=== PATIENT | male | born 1965 | race Caucasian/White ===

== ENCOUNTER 2019-04-30 09:29 | Day surgery (SDC) | payer BC, OTHER ==
[2019-04-30] MEDS ORDERED: Depo-Medrol 40 MG/ML IM ONE (09:30)
[2019-04-30] MEDS ORDERED: Marcaine 0.5% SDV 10 ML IJ ONE (09:30)
[2019-04-30] MEDS ORDERED: Ketamine HCl 50 MG/ML ONE (10:18)
[2019-04-30] MEDS ORDERED: DIPRIVAN 200 MG/20 ML IV ONE (10:18)
--- NOTE | 2019-04-30 10:50 | XRAY ---
11 seconds fluoroscopy time in surgery for right intra-articular hip injection.
--- NOTE | 2019-04-30 10:50 | XRAY ---
Indication: Right hip injection. Intraoperative fluoroscopy was provided for 11 seconds. Single digital spot image submitted for interpretation demonstrates needle tip projecting just lateral to the right femur neck. Small amount of contrast injected for needle tip placement. Correlate with intraoperative findings/report.
[2019-04-30] MEDS ORDERED: Lactated Ringers 1,000 ML IV ONE (14:51)
== END 2019-04-30 10:45 | disposition home or self-care (01) ==
LOC: SDC-PAIN 09:29
PROVIDERS: ATTEND Psychiatry & Neurology Pain Medicine
DX: M16.11 Unilateral primary osteoarthritis, right hip (principal); K21.9 Gastro-esophageal reflux disease without esophagitis; G47.30 Sleep apnea, unspecified; F41.8 Other specified anxiety disorders; Z86.718 Personal history of other venous thrombosis and embolism
CPT/HCPCS: 20610; 73501; 77002; J1030; J2704; Q9966

== ENCOUNTER 2021-03-13 08:33 | Emergency (ER) | payer OTHER ==
--- NOTE | 2021-03-13 08:55 | ERPHSYRPT ---
- History of Present Illness Time Seen by Provider: 03/13/21 08:54 Source: patient Exam Limitations: no limitations Patient Subjective Stated Complaint: to er c/o severe pain to left buttock hip and leg. pt states he has hx of siatic pain on right side and feels similar. pt tried biofreeze patch and norco at home. 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 pt sees dr duggan for [id number] Triage Nursing Assessment: pt arrives p/w/d resp labored dt pain. pt is guarding left side unable to stay in one position long Physician History: This is an overweight 55-year-old white male patient of Dr. Duggan who has a history of right-sided sciatica. Dr. Duggan is his pain specialist and occasionally injects medication in his back to help with the right-sided sciatica. Patient states that he has no recent fall or trauma. However, 30 da ys ago he fell onto his right wrist and had some pain in his right wrist and right ribs. It was not until [place] pratik where he began having some pain in his left hip and buttock area. He has no urinary incontinence. He has no bowel incontinence. He does not have any numbness to his lower extremity. He tried his usual [place] pain medicine and it did not help. Timing/Duration: day(s) (2) Method of Injury: other (No recent injury to his back or left hip) Quality: radiating, sharp, aching Back Pain Location: lumbar spine Back Pain Radiation: buttocks, upper legs Severity of Pain-Max: moderate Severity of Pain-Current: moderate Modifying Factors: Improves With: movement Associated Symptoms: lower back pain, No urinary incontinence, No loss of bowel control, No problems urinating, No numbness in legs/feet, No sensory/motor loss, No tingling in legs/feet Previous symptoms: other (Has had similar symptoms but on the right side not on the left side as he has today) Allergies/Adverse Reactions: No Known Drug Allergies Allergy (Unverified 03/13/21 08:54) Home Medications: ALPRAZolam 1 MG [Xanax 1 mg] 1 mg PO BID PRN 03/13/21 [History] Hydrocodone/Acetaminophen [Hydrocodone-Acetamin 10-325 mg] 1 tablet PO TID 03/13/21 [History] Travel Risk - International Travel Have you traveled outside of the country in past 3 weeks: No - Coronavirus Screening Are you exhibiting any of the following symptoms?: No Close contact with a COVID-19 positive Pt in past 14-21 Days: No - Vaccine Status Have you recieved a Covid-19 vaccination: Yes 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[employer] - Review of Systems Constitutional: No Symptoms Eyes: No Symptoms Ears, Nose, & Throat: No Symptoms Respiratory: No Symptoms Cardiac: No Symptoms Abdominal/Gastrointestinal: No Symptoms Genitourinary Symptoms: No Symptoms Musculoskeletal: Back Pain, No Fall, No Injury Skin: No Symptoms Neurological: No Symptoms Psychological: No Symptoms Endocrine: No Symptoms Hematologic/Lymphatic: No Symptoms Immunological/Allergic: No Symptoms All Other Systems: Reviewed and Negative - Past Medical History Pertinent Past Medical History: Yes Other Medical History: PE, - Past Surgical History Past Surgical History: Yes Other Surgical History: left knee acl - Social History Smoking Status: Never smoker - Nursing Vital Signs Nursing Vital Signs: Pain Scale Pain Intensity 10 - Physical Exam General Appearance: mild distress, alert, anxiety, obese Eye Exam: PERRL/EOMI, eyes nml inspection Ears, Nose, Throat Exam: normal ENT inspection, moist mucous membranes Neck Exam: normal inspection, non-tender, supple, full range of motion Respiratory Exam: airway intact, No chest tenderness, No respiratory distress Gastrointestinal Exam: No tenderness Rectal Exam: not done Back Exam: normal inspection, decreased range of motion, muscle spasm, No CVA tenderness, No vertebral tenderness Extremity Exam: normal inspection, normal range of motion, pelvis stable Neurologic Exam: alert, oriented x 3, cooperative, 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, normal mood/affect, sensation nml, No motor deficits Skin Exam: normal color, warm, dry Lymphatic Exam: No adenopathy SpO2 Interpretation: normal O2 Delivery: Room Air - Course Nursing assessment & vital signs reviewed: Yes Ordered Tests: Medication Summary Discontinued Medications Generic Name Dose Route Start Last Admin Trade Name Alfredq PRN Reason Stop Dose Admin Methylprednisolone Sodium 0 mg 03/13/21 09:09 Succinate 125 mg/ Sterile IM 03/13/21 09:10 Water 2 ml STAT ONE Hydromorphone HCl 1 mg 03/13/21 09:09 Hydromorphone 1 Mg/1ml Inj 1 Mg/Ml Syringe IM 03/13/21 09:10 STAT ONE Ondansetron HCl 4 mg 03/13/21 09:11 Zofran 4 Mg/Udtablet Orally Disintegrating PO 03/13/21 09:12 STAT ONE Orphenadrine Citrate 60 mg 03/13/21 09:10 Orphenadrine Citrate 60 Mg/2 Ml Amp IM 03/13/21 09:11 STAT ONE - Progress Progress: improved, pain not gone completely Counseled pt/family regarding: diagnosis, need for follow-up - Departure Departure Disposition: Home Clinical Impression: Left sided sciatica Condition: Stable Critical Care Time: No Referrals: JORGE LUIS STEWART [NON-STAFF Y W/O PRIVILEGES] - Follow up/PCP as directed Additional Instructions: Take your [place] as prescribed. Call Dr. Duggan's office tomorrow morning, 03/14/2021 for further management recommendations. Fill the additional medications that were prescribed to you and take as prescribed. Prescriptions: Prednisone 10 mg [Deltasone 10 mg] 10 mg PO TID #12 tablet Orphenadrine Citrate 100 mg [Norflex 100 MG Tablet] 100 mg PO BID #14 tab
[2021-03-13] MEDS ORDERED: solu-MEDROL 125 MG, Sterile H2O 10 ml 2 ML IM ONE ×2 (09:09)
[2021-03-13] MEDS ORDERED: Hydromorphone 1 mg/ml Injection IM ONE (09:09)
[2021-03-13] MEDS ORDERED: Norflex 60 MG/2 ML IM ONE (09:10)
[2021-03-13] MEDS ORDERED: ZOFRAN ODT 4 MG PO ONE (09:11)
[2021-03-13] MEDS ORDERED: solu-MEDROL ONE (09:14)
[2021-03-13] MEDS ORDERED: Hydromorphone 1 mg/ml Injection ONE (09:14)
[2021-03-13] MEDS ORDERED: Norflex 60 MG/2 ML ONE (09:14)
[2021-03-13] MEDS ORDERED: ZOFRAN ODT 4 MG ONE (09:14)
[2021-03-13 09:48] VITALS: BP 169/82; PULSE 102; O2SAT 97
== END 2021-03-13 09:46 | disposition home or self-care (01) ==
LOC: ED 08:33
DX: M54.32 Sciatica, left side (principal); Z79.891 Long term (current) use of opiate analgesic
CPT/HCPCS: 96372; 99284; J1170; J2360; J2930; Q0162

== ENCOUNTER 2021-03-28 23:00 | Emergency (ER) | payer OTHER ==
[2021-03-28 23:16] VITALS: BP 149/129; PULSE 99; O2SAT 97
[2021-03-28] MEDS ORDERED: TORAdol 30 mg Injection IM ONE (23:29)
[2021-03-28] MEDS ORDERED: TORAdol 30 mg Injection ONE (23:34)
--- NOTE | 2021-03-28 23:37 | ERPHSYRPT ---
- History of Present Illness Time Seen by Provider: 03/28/21 23:10 Source: patient Exam Limitations: no limitations Patient Subjective Stated Complaint: ems states they were called to the [employer] for lift assist and pt c/o leg pain Triage Nursing Assessment: pt came into the er via ambulance; pt is axo x3 ETOH; c/o fall; pt states 10/10 pain to left leg; abrasion present to left and rt knee; strong pedal pulse; good cap refill to LLE; good ROM to LLE; hypertension Physician History: Patient is a 55-year-old male presents to our ED via EMS nonboarded noncollared for evaluation of low back and left leg pain. Patient states he was ambulating in a parking lot at the [facility] [employer]. Patient slipped and fell onto his bottom. Patient now has low back pain rating to his left leg. Patient states he does not have a history of sciatica. No other injuries reported. No neck pain. Cervical spine cleared clinically. No BHT or LOC. The fall was mechanical. The fall was not associated with any neuro cardiovascular symptomology. No associated chest pain or shortness of breath. Symptoms are mild to moderate in intensity. Pain worse with straight leg raise. Patient states he is otherwise healthy. He voices no other complaints or concerns at this time. Timing/Duration: today Severity: moderate Modifying Factors: Improves With: movement, other (Palpation to lumbar spine reproduces symptoms.) Associated Symptoms: denies symptoms, No nausea, No vomiting, No abdominal pain, No diaphoresis, No cough, No chest pain, No headaches, No loss of appetite, No malaise, No syncope, No seizure, No weakness Allergies/Adverse Reactions: No Known Drug Allergies Allergy (Verified 03/28/21 23:03) Home Medications: ALPRAZolam 1 MG [Xanax 1 mg] 1 mg PO BID PRN 03/13/21 [History] Hydrocodone/Acetaminophen [Hydrocodone-Acetamin 10-325 mg] 1 tablet PO TID [History] Hx Tetanus, Diphtheria Vaccination/Date Given: No (unknown) Hx Influenza Vaccination/Date Given: No Hx Pneumococcal Vaccination/Date Given: No Travel Risk - International Travel Have you traveled outside of the country in past 3 weeks: No - Coronavirus Screening Are you exhibiting any of the following symptoms?: No Close contact with a COVID-19 positive Pt in past 14-21 Days: No - Vaccine Status Have you recieved a Covid-19 vaccination: Yes 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 - Review of Systems Constitutional: No Symptoms, No Fever, No Chills Eyes: No Symptoms Ears, Nose, & Throat: No Symptoms Respiratory: No Symptoms, No Cough, No Dyspnea Cardiac: No Symptoms, No Chest Pain, No Edema, No Syncope Abdominal/Gastrointestinal: No Symptoms, No Abdominal Pain, No Nausea, No Vomiting, No Diarrhea Genitourinary Symptoms: No Symptoms, No Dysuria Musculoskeletal: No Symptoms, No Back Pain, No Neck Pain Skin: No Symptoms, No Rash Neurological: No Symptoms, No Dizziness, No Focal Weakness, No Sensory Changes Psychological: No Symptoms Endocrine: No Symptoms Hematologic/Lymphatic: No Symptoms Immunological/Allergic: No Symptoms All Other Systems: Reviewed and Negative - Past Medical History Pertinent Past Medical History: Yes Neurological History: No Pertinent History ENT History: No Pertinent History Cardiac History: No Pertinent History Respiratory History: Pulmonary Embolism Endocrine Medical History: No Pertinent History Musculoskeletal History: Degenerative Disk Disease GI Medical History: No Pertinent History History: No Pertinent History Psycho-Social History: Anxiety Male Reproductive Disorders: No Pertinent History Other Medical History: PE, - Past Surgical History Past Surgical History: Yes Neuro Surgical History: No Pertinent History Cardiac: No Pertinent History Respiratory: No Pertinent History Gastrointestinal: No Pertinent History Genitourinary: No Pertinent History Musculoskeletal: Orthopedic Surgery Male Surgical History: No Pertinent History Other Surgical History: left knee acl - Social History Smoking Status: Never smoker Exposure to second hand smoke: No Drug Use: none Patient Lives Alone: Yes - Nursing Vital Signs Nursing Vital Signs: Initial Vital Signs Temperature 97 F 03/28/21 23:03 Pulse Rate 99 H 03/28/21 23:03 Respiratory Rate 18 03/28/21 23:03 Blood Pressure 149/129 03/28/21 23:03 O2 Sat by Pulse Oximetry 97 03/28/21 23:03 Pain Scale Pain Intensity 10 - Physical Exam General Appearance: no apparent distress, alert Eye Exam: PERRL/EOMI, eyes nml inspection Ears, Nose, Throat Exam: normal ENT inspection, TMs normal, pharynx normal, moist mucous membranes Neck Exam: normal inspection, non-tender, supple, full range of motion Respiratory Exam: normal breath sounds, lungs clear, airway intact, No respiratory distress Cardiovascular Exam: regular rate/rhythm, normal heart sounds, normal peripheral pulses Gastrointestinal/Abdomen Exam: soft, normal bowel sounds, No tenderness, No mass Back Exam: normal inspection, normal range of motion, No CVA tenderness, No vertebral tenderness Extremity Exam: normal inspection, normal range of motion, pelvis stable, other (Tenderness to palpation left distal femur. Patient able to flex his left knee. Extensor mechanism intact. Involved extremity is neurovascular tact distally. Compartments are soft. Cap refill less than 2 seconds. PT DP pulse palpable.) Neurologic Exam: alert, oriented x 3, cooperative, normal mood/affect, nml cerebellar function, nml station & gait, sensation nml, No motor deficits Skin Exam: normal color, warm, dry, No rash Lymphatic Exam: No adenopathy SpO2 Interpretation: normal SpO2: 97 O2 Delivery: Room Air - Course Nursing assessment & vital signs reviewed: Yes - Radiology Exams Femur X-ray Interpretation: Interpreted by me (No fracture or dislocation. No soft tissue abnormalities.) - CT Exams Lumbar Spine CT Interpretation: Tele-radiologist Report (No acute findings. Multilevel degenerative changes. Vertebral heights are normal. No acute fracture. Normal alignment. Degenerative changes. Spinal stenosis is most severe at L4-L5. Moderate neural foraminal narrowing.) Ordered Tests: Active Orders 24 hr Category Date Time Status FEMUR Stat Exams 03/28/21 23:28 Taken LUMBAR SPINE W/O [CT] Stat Exams 03/28/21 23:27 Taken Medication Summary Discontinued Medications Generic Name Dose Route Start Last Admin Trade Name Freq PRN Reason Stop Dose Admin Ketorolac Tromethamine 30 mg 03/28/21 23:29 03/28/21 23:35 Ketorolac Tromethamine 30 Mg/Ml Inj IM 03/28/21 23:30 30 mg STAT ONE Administration Ketorolac Tromethamine Confirm 03/28/21 23:34 Ketorolac Tromethamine 30 Mg/Ml Inj Administered 03/28/21 23:35 Dose 30 mg .ROUTE .STK-MED ONE - Progress Progress: improved Progress Note: Patient left before we can discussed the findings. Patient eloped/absconded. We did not discuss the imaging study findings. Patient states that his significant other was there to pick him up and he could not wait. 03/29/21 00:46 - Departure Departure Disposition: AMA (Patient eloped/absconded. Patient left before we can discuss findings and or discussed AMA) Clinical Impression: Low back pain, Fall, Sciatica, Arthritis of spine, Spinal canal stenosis lumbar spine Condition: Stable Critical Care Time: No Referrals: JANICE CHANDLER, [ACTIVE STAFF] - Follow up/PCP as directed Additional Instructions: Discharge/Care Plan MOHSEN URIBE was seen on 03/29/21 in the Emergency Room. The patient was counseled regarding Diagnosis,Lab results, Imaging studies, need for follow up and when to return to the Emergency Room. Prescriptions given: Discharge Note I have spoken with the patient and/or caregivers. I have explained the patient's condition, diagnosis and treatment plan based on the information available to me at this time. I have answered the patient's and/or caregiver's questions and addressed any concerns. The patient and/or caregivers have as good understanding of the patient's diagnosis, condition and treatment plan as can be expected at this point. The vital signs have been stable. The patient's condition is stable and appropriate for discharge from the emergency department. The patient will pursue further outpatient evaluation with the primary care physician or other designated or consulting physician as outlined in the discharge instructions. The patient and/or caregivers are agreeable to this plan of care and follow-up instructions have been explained in detail. The patient and/or caregivers have received these instruction. The patient/and or caregivers are aware that any significant change in condition or worsening of symptoms should prompt an immediate return to this or the closest emergency department or call 911.
--- NOTE | 2021-03-29 09:28 | XRAY ---
Indication: Pain following fall. Comparison: None 2 view left femur demonstrates minimal vascular calcifications. No other bony, articular, or soft tissue abnormalities.
--- NOTE | 2021-03-29 09:30 | XRAY ---
Indication: Pain following fall. Multiple contiguous axial images obtained through the lumbar spine. Sagittal and coronal reformatted images obtained. Comparison: None Axial images negative for acute fracture, suspicious bony lesions, or spinal canal stenosis. There is mild/moderate L1-S1 broad-based degenerative disc bulge with vacuum disc phenomena. L4-S1 level demonstrates mild degenerative changes of the opposing endplates and mild bilateral degenerative facet arthropathy. Sagittal and coronal reformatted images demonstrates normal alignment. Mild L4-S1 disc space narrowing. No acute compression fracture or subluxation. Visualized noncontrasted soft tissues demonstrates minimal aortic calcifications. Impression: Multilevel degenerative changes. Negative acute fracture/subluxation. Comment: Preliminary interpretation made by [facility]. No critical discrepancy.
== END 2021-03-29 00:40 | disposition left against medical advice (07) ==
LOC: ED 23:00
DX: M54.42 Lumbago with sciatica, left side (principal); W01.0XXA Fall on same level from slipping, tripping and stumbling without subsequent striking against object, initial encounter; Y92.481 Parking lot as the place of occurrence of the external cause; M48.061 Spinal stenosis, lumbar region without neurogenic claudication; M47.816 Spondylosis without myelopathy or radiculopathy, lumbar region; Z86.711 Personal history of pulmonary embolism; Z79.891 Long term (current) use of opiate analgesic
CPT/HCPCS: 72131; 73552; 96372; 99284; J1885

== ENCOUNTER 2021-04-12 08:07 | Emergency (ER) | payer OTHER ==
[2021-04-12 08:16] VITALS: BP 164/122; PULSE 101; O2SAT 97
[2021-04-12] MEDS ORDERED: Hydromorphone 1 mg/ml Injection IM ONE (08:23)
--- NOTE | 2021-04-12 08:23 | ERPHSYRPT ---
- History of Present Illness Time Seen by Provider: 04/12/21 08:17 Source: patient Exam Limitations: no limitations Patient Subjective Stated Complaint: Back pain Triage Nursing Assessment: Patient brought back to ED via w/c and transferred to bed with assist of 1. Patient A+O x3. Patient's skin pink, warm and dry. Patient states he woke up with back pain. Patient complains of constant aching pain with intermittent sharp pain that radiates down left leg into ankle 12/26. Patient denies recent injury and states he has chronic back issues and is seeing a instructional systems specialist on Sunday. Physician History: This is a 55-year-old white male with chronic back pain and sciatica. He has been seen at least 3 times in the last month in this emergency department for the same issue. Patient sees a pain specialist Dr. Duggan. He is prescribed Xanax and hydrocodone. Patient was seen here at this emergency department on 03/28/2021 and he had underwent a CT scan of the lumbar spine which showed degenerative changes. There were no acute fractures or subluxations. There was no spinal cord impingement. Patient woke up this morning with excruciating back pain. He did not fall or sustain any acute traumatic injury. Patient supposedly sees a back specialist on 04/15/2021 this week. Patient has no loss of bowel or bladder control Timing/Duration: today Method of Injury: other (No injury) Quality: sharp Back Pain Location: lumbar spine, paraspinous muscles Back Pain Radiation: buttocks, upper legs Severity of Pain-Max: moderate Severity of Pain-Current: moderate Modifying Factors: Improves With: movement Associated Symptoms: lower back pain, No urinary incontinence, No problems urinating, No numbness in legs/feet Previous symptoms: same symptoms as today, recently seen, recently treated Allergies/Adverse Reactions: No Known Drug Allergies Allergy (Verified 04/12/21 08:10) Home Medications: ALPRAZolam 1 MG [Xanax 1 mg] 1 mg PO BID PRN 03/13/21 [History] Hydrocodone/Acetaminophen [Hydrocodone-Acetamin 10-325 mg] 1 tablet PO TID 03/13/21 [History] Hx Tetanus, Diphtheria Vaccination/Date Given: No (unknown) Hx Influenza Vaccination/Date Given: No Hx Pneumococcal Vaccination/Date Given: No Immunizations Up to Date: Yes Travel Risk - International Travel Have you traveled outside of the country in past 3 weeks: No - Coronavirus Screening Are you exhibiting any of the following symptoms?: No Close contact with a COVID-19 positive Pt in past 14-21 Days: No - Vaccine Status Have you recieved a Covid-19 vaccination: Yes 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: [employer] - Review of Systems Constitutional: No Symptoms Eyes: No Symptoms Ears, Nose, & Throat: No Symptoms Respiratory: No Symptoms Cardiac: No Symptoms Abdominal/Gastrointestinal: No Symptoms Genitourinary Symptoms: No Symptoms Musculoskeletal: Back Pain, No Fall, No Injury Skin: No Symptoms Neurological: No Symptoms Psychological: No Symptoms Endocrine: No Symptoms Hematologic/Lymphatic: No Symptoms Immunological/Allergic: No Symptoms All Other Systems: Reviewed and Negative - Past Medical History Pertinent Past Medical History: Yes Neurological History: No Pertinent History ENT History: No Pertinent History Cardiac History: No Pertinent History Respiratory History: Pulmonary Embolism Endocrine Medical History: No Pertinent History Musculoskeletal History: Degenerative Disk Disease GI Medical History: No Pertinent History History: No Pertinent History Psycho-Social History: Anxiety Male Reproductive Disorders: No Pertinent History Other Medical History: PE, - Past Surgical History Past Surgical History: Yes Neuro Surgical History: No Pertinent History Cardiac: No Pertinent History Respiratory: No Pertinent History Gastrointestinal: No Pertinent History Genitourinary: No Pertinent History Musculoskeletal: Orthopedic Surgery Male Surgical History: No Pertinent History Other Surgical History: left knee acl - Social History Smoking Status: Never smoker Exposure to second hand smoke: No Drug Use: none Patient Lives Alone: Yes - Nursing Vital Signs Nursing Vital Signs: Initial Vital Signs Pulse Rate 101 H 04/12/21 08:11 Respiratory Rate 18 04/12/21 08:11 Blood Pressure 164/122 04/12/21 08:11 O2 Sat by Pulse Oximetry 97 04/12/21 08:11 Pain Scale Pain Intensity 10 - Physical Exam General Appearance: mild distress, alert, anxiety Eye Exam: PERRL/EOMI, eyes nml inspection Ears, Nose, Throat Exam: normal ENT inspection, moist mucous membranes Neck Exam: normal inspection, non-tender, supple, full range of motion Respiratory Exam: No chest tenderness Gastrointestinal Exam: No tenderness Rectal Exam: not done Back Exam: normal inspection, decreased range of motion, muscle spasm, No vertebral tenderness Extremity Exam: normal inspection, normal range of motion, pelvis stable Neurologic Exam: alert, oriented x 3, cooperative, automatic developer II-XII nml as tested, normal mood/affect, nml cerebellar function, sensation nml Skin Exam: normal color, warm, dry Lymphatic Exam: No adenopathy SpO2 Interpretation: normal SpO2: 97 O2 Delivery: Room Air - Course Nursing assessment & vital signs reviewed: Yes - Progress Progress: improved, pain not gone completely Counseled pt/family regarding: diagnosis, need for follow-up - Departure Departure Disposition: Home Clinical Impression: Acute exacerbation of chronic low back pain, Sciatica Condition: Stable Critical Care Time: No Referrals: Crescencio Bradshaw [Primary Care Provider] - Follow up/PCP as directed Additional Instructions: Call Dr. Duggan's office today for further outpatient management of your back pain. Keep your appointment with your back specialist on 04/15/2021. Take your medications as prescribed Prescriptions: Prednisone 10 mg [Deltasone 10 mg] 10 mg PO TID #12 tablet Orphenadrine Citrate 100 mg [Norflex 100 MG Tablet] 100 mg PO BID #10 tab
[2021-04-12] MEDS ORDERED: ZOFRAN ODT 4 MG PO ONE (08:24)
[2021-04-12] MEDS ORDERED: Norflex 60 MG/2 ML IM ONE (08:24)
[2021-04-12] MEDS ORDERED: solu-MEDROL 125 MG, Sterile H2O 10 ml 2 ML IM ONE ×2 (08:24)
[2021-04-12] MEDS ORDERED: Sterile H2O 10 ml IJ ONE (08:26)
[2021-04-12] MEDS ORDERED: Hydromorphone 1 mg/ml Injection ONE (08:26)
[2021-04-12] MEDS ORDERED: Norflex 60 MG/2 ML ONE (08:26)
[2021-04-12] MEDS ORDERED: solu-MEDROL ONE (08:26)
[2021-04-12] MEDS ORDERED: ZOFRAN ODT 4 MG ONE (08:26)
== END 2021-04-12 08:57 | disposition home or self-care (01) ==
LOC: ED 08:07
DX: M54.42 Lumbago with sciatica, left side (principal); G89.29 Other chronic pain; Z86.711 Personal history of pulmonary embolism; Z79.891 Long term (current) use of opiate analgesic; Z79.52 Long term (current) use of systemic steroids; Z79.899 Other long term (current) drug therapy
CPT/HCPCS: 96372; 99284; J1170; J2360; J2930; Q0162

== ENCOUNTER 2021-08-16 18:43 | Emergency (ER) | payer OTHER ==
[2021-08-16] MEDS ORDERED: Lasix 40 MG/4 ML IV ONE (18:44)
--- NOTE | 2021-08-16 18:48 | ERPHSYRPT ---
- History of Present Illness Time Seen by Provider: 08/16/21 18:48 Source: patient, family Exam Limitations: no limitations Physician History: This is a 55-year-old white male patient who was told to come to the emergency department because he had an outpatient ultrasound of the right lower extremity showing DVT. Patient has a distant history of pulmonary embolus and was taken off of anticoagulation therapy several years ago. He was having pain in his right calf and the venous ultrasound this morning showed the DVT present. He denies chest pain. He denies shortness of breath. Quality: aching, cramping Severity of Pain-Max: mild Severity of Pain-Current: mild Lower Extremities Pain: leg: right (Calf/lower leg) Modifying Factors: Improves With: nothing Associated Symptoms: none Allergies/Adverse Reactions: No Known Drug Allergies Allergy (Verified 04/12/21 08:10) Home Medications: ALPRAZolam 1 MG [Xanax 1 mg] 1 mg PO BID PRN 03/13/21 [History] Hydrocodone/Acetaminophen [Hydrocodone-Acetamin 10-325 mg] 1 tablet PO TID 03/13/21 [History] Rivaroxaban 10 mg Tablet [Xarelto 10 mg Tablet] 10 mg PO DAILY 08/16/21 [History] Hx Tetanus, Diphtheria Vaccination/Date Given: No (unknown) Hx Influenza Vaccination/Date Given: No Hx Pneumococcal Vaccination/Date Given: No Travel Risk - International Travel Have you traveled outside of the country in past 3 weeks: No - Coronavirus Screening Are you exhibiting any of the following symptoms?: No Close contact with a COVID-19 positive Pt in past 14-21 Days: No - Vaccine Status Have you recieved a Covid-19 vaccination: Yes [employer]: [employer] - Review of Systems Constitutional: No Symptoms Eyes: No Symptoms Ears, Nose, & Throat: No Symptoms Respiratory: No Symptoms Cardiac: No Symptoms Abdominal/Gastrointestinal: No Symptoms Genitourinary Symptoms: No Symptoms Musculoskeletal: Other (Right lower leg cramping) Skin: No Symptoms Neurological: No Symptoms Psychological: No Symptoms Endocrine: No Symptoms Hematologic/Lymphatic: No Symptoms Immunological/Allergic: No Symptoms All Other Systems: Reviewed and Negative - Past Medical History Pertinent Past Medical History: Yes Neurological History: No Pertinent History ENT History: No Pertinent History Cardiac History: No Pertinent History Respiratory History: Pulmonary Embolism Endocrine Medical History: No Pertinent History Musculoskeletal History: Degenerative Disk Disease GI Medical History: No Pertinent History History: No Pertinent History Psycho-Social History: Anxiety Male Reproductive Disorders: No Pertinent History Other Medical History: PE, - Past Surgical History Past Surgical History: Yes Neuro Surgical History: No Pertinent History Cardiac: No Pertinent History Respiratory: No Pertinent History Gastrointestinal: No Pertinent History Genitourinary: No Pertinent History Musculoskeletal: Orthopedic Surgery Male Surgical History: No Pertinent History Other Surgical History: left knee acl - Social History Smoking Status: Never smoker Exposure to second hand smoke: No Drug Use: none Patient Lives Alone: Yes - Nursing Vital Signs Nursing Vital Signs: Initial Vital Signs Temperature 97.2 F 08/16/21 19:12 Pulse Rate 102 H 08/16/21 19:12 Respiratory Rate 22 08/16/21 19:12 Blood Pressure 143/97 08/16/21 19:12 O2 Sat by Pulse Oximetry 97 08/16/21 19:12 Pain Scale Pain Intensity 5 - Physical Exam General Appearance: no apparent distress, alert, anxiety Eyes, Ears, Nose, Throat Exam: normal ENT inspection, moist mucous membranes Neck Exam: normal inspection, non-tender, supple, full range of motion Cardiovascular/Respiratory Exam: chest non-tender, no respiratory distress Gastrointestinal/Abdominal Exam: non-tender Back Exam: normal inspection, normal range of motion, No CVA tenderness, No vertebral tenderness Hips Exam: bilateral: non-tender, normal inspection, normal range of motion, no evidence of injury Legs Exam: right leg: soft tissue tenderness (Calf pain), left leg: non-tender, bilateral leg: normal inspection, normal range of motion, no evidence of injury Knees Exam: bilateral knee: non-tender, normal inspection, normal range of motion, no evidence of injury Ankle Exam: bilateral ankle: non-tender, normal inspection, normal range of motion, no evidence of injury Foot Exam: bilateral foot: non-tender, normal inspection, normal range of motion, no evidence of injury Neuro/Tendon Exam: normal sensation, normal motor functions, normal tendon functions, responds to pain, no evidence tendon injury Mental Status Exam: alert, oriented x 3, cooperative Skin Exam: normal color, warm, dry SpO2 Interpretation: normal O2 Delivery: Room Air - Course Nursing assessment & vital signs reviewed: Yes EKG Interpreted by Me: RATE ([id number]), Sinus Rhythm, NORMAL AXIS, NORMAL INTERVALS, NORMAL QRS, NORMAL ST-T, Other (No acute ischemic changes.) Ordered Tests: Active Orders 24 hr Category Date Time Status CBC W DIFF Stat Lab 08/16/21 20:04 Ordered PROTIME WITH INR Stat Lab 08/16/21 20:04 Ordered Medication Summary Discontinued Medications Generic Name Dose Route Start Last Admin Trade Name Freq PRN Reason Stop Dose Admin Apixaban 10 mg 08/16/21 19:36 Apixaban 2.5 Mg Tablet PO 08/16/21 19:37 STAT ONE Enoxaparin Sodium 105 mg 08/16/21 19:35 Enoxaparin Sodium 120 Mg/0.8 Ml Syringe SQ 08/16/21 19:36 STAT STA Enoxaparin Sodium Confirm 08/16/21 19:40 Enoxaparin Sodium 80 Mg/0.8 Ml Syringe Administered 08/16/21 19:41 Dose 80 mg SQ .STK-MED ONE Furosemide 20 mg 08/16/21 20:04 Furosemide 20 Mg/Vial IV 08/16/21 20:05 STAT ONE - Progress Progress: unchanged Counseled pt/family regarding: lab results, diagnosis, need for follow-up - Departure Departure Disposition: Home Clinical Impression: Right leg DVT Condition: Stable Critical Care Time: No Referrals: Crescencio Bradshaw [Primary Care Provider] - Follow up/PCP as directed Additional Instructions: Take your medication as prescribed. Follow-up with your primary prescribing physician tomorrow morning to make arrangements for follow-up appointment and for further evaluation and to provide you with long-term Eliquis prescription. Prescriptions: Apixaban [Eliquis] 10 mg PO BID 14 Days #28 tablet
[2021-08-16 19:18] VITALS: O2SAT 97
[2021-08-16] MEDS ORDERED: ENOXAPARIN SODIUM SQ STA (19:35)
[2021-08-16] MEDS ORDERED: ELIQUIS 2.5 MG TABLET PO ONE (19:36)
[2021-08-16] MEDS ORDERED: ENOXAPARIN SODIUM SQ ONE ×2 (19:40→20:15)
[2021-08-16] MEDS ORDERED: Lasix 20 MG/2 ML IV ONE (20:04)
[2021-08-16 20:08] LABS: Hematocrit 43.7 % (42-50); Hemoglobin 15.3 g/dL (12.5-18.0); Mean Cell Volume 108.2 fL (78-100); Mean Corpuscular Hemoglobin 37.9 pg (26-32); Mean Platelet Volume 9.8 fL (7.5-11.0); Platelet Count 214 x10^3/uL (150-450); Red Blood Count 4.04 x10^6/uL (4.1-5.6); Red Cell Distribution Width 14.7 % (11.5-14.0); White Blood Count 6.4 x10^3/uL (4.0-10.5)
[2021-08-16] MEDS ORDERED: Lasix 40 MG/4 ML ONE (20:09)
[2021-08-16 20:25] LABS: INR 1.06 (0.8-3.0); PROTIME 11.2 SECONDS (9.4-12.5)
[2021-08-16 20:44] VITALS: BP 143/105; PULSE 100
[2021-08-16 22:38] LABS: Eosinophil 2 % (0.00-3.0); Lymphocytes 34 % (24-44); Macrocytosis 2+; Monocyte 8 % (0.0-12.0); Platelet Estimate NORMAL (NORMAL); Total Cells Counted 100
== END 2021-08-16 20:43 | disposition home or self-care (01) ==
LOC: ED 18:43
DX: I82.401 Acute embolism and thrombosis of unspecified deep veins of right lower extremity (principal); M79.604 Pain in right leg; Z86.711 Personal history of pulmonary embolism; Z79.01 Long term (current) use of anticoagulants; Z79.899 Other long term (current) drug therapy; Z79.891 Long term (current) use of opiate analgesic
CPT/HCPCS: 36415; 85025; 85610; 96372; 96374; 99284; J1650; J1940; A9270-GY

== ENCOUNTER 2021-12-12 12:33 | Observation (INO) | payer OTHER ==
--- NOTE | 2021-12-12 12:36 | ERPHSYRPT ---
- History of Present Illness Time Seen by Provider: 12/12/21 12:35 Source: patient Exam Limitations: no limitations Physician History: This is an obese 56-year-old white male patient who is on Xarelto secondary to history of pulmonary embolism and DVT and presents with esophageal food bolus. He ate chicken yesterday and cannot swallow his saliva. He has no chest pain and no difficulty breathing. He has no abdominal pain. He had a history of this in the past with steak. Patient had to undergo an upper endoscopy to remove the food bolus. Patient states that he tried everything including soda to get the food bolus to pass but has been unable to do so. Timing/Duration: yesterday Severity: mild (To moderate) Modifying Factors: Improves With: other (Swallowing attempts worsen) Associated Symptoms: difficulty swallowing Allergies/Adverse Reactions: No Known Drug Allergies Allergy (Verified 12/12/21 12:47) Home Medications: ALPRAZolam 1 MG [Xanax 1 mg] 1 mg PO BID PRN 03/13/21 [History] Hydrocodone/Acetaminophen [Hydrocodone-Acetamin 10-325 mg] 1 tablet PO TID 03/13/21 [History] Rivaroxaban 10 mg Tablet [Xarelto 10 mg Tablet] 10 mg PO DAILY 08/16/21 [History] Hx Tetanus, Diphtheria Vaccination/Date Given: No (unknown) Hx Influenza Vaccination/Date Given: No Hx Pneumococcal Vaccination/Date Given: No Travel Risk - International Travel Have you traveled outside of the country in past 3 weeks: No - Coronavirus Screening Are you exhibiting any of the following symptoms?: No Close contact with a COVID-19 positive Pt in past 14-21 Days: No - Vaccine Status Have you recieved a Covid-19 vaccination: Yes [employer]: [employer] - Review of Systems Constitutional: No Symptoms Eyes: No Symptoms Ears, Nose, & Throat: Other (Patient unable to swallow his secretions) Respiratory: No Symptoms Cardiac: No Symptoms Abdominal/Gastrointestinal: No Symptoms Genitourinary Symptoms: No Symptoms Musculoskeletal: No Symptoms Skin: No Symptoms Neurological: No Symptoms Psychological: No Symptoms Endocrine: No Symptoms Hematologic/Lymphatic: No Symptoms Immunological/Allergic: No Symptoms All Other Systems: Reviewed and Negative - Past Medical History Pertinent Past Medical History: Yes Neurological History: No Pertinent History ENT History: No Pertinent History Cardiac History: No Pertinent History Respiratory History: Pulmonary Embolism Endocrine Medical History: No Pertinent History Musculoskeletal History: Degenerative Disk Disease GI Medical History: No Pertinent History History: No Pertinent History Psycho-Social History: Anxiety Male Reproductive Disorders: No Pertinent History Other Medical History: PE, - Past Surgical History Past Surgical History: Yes Neuro Surgical History: No Pertinent History Cardiac: No Pertinent History Respiratory: No Pertinent History Gastrointestinal: No Pertinent History Genitourinary: No Pertinent History Musculoskeletal: Orthopedic Surgery Male Surgical History: No Pertinent History Other Surgical History: left knee acl - Social History Smoking Status: Never smoker Exposure to second hand smoke: No Drug Use: none Patient Lives Alone: Yes - Nursing Vital Signs Nursing Vital Signs: Initial Vital Signs Temperature 97.2 F 12/12/21 12:51 Pulse Rate 82 12/12/21 12:51 Respiratory Rate 18 12/12/21 12:51 Blood Pressure 192/108 12/12/21 12:51 O2 Sat by Pulse Oximetry 97 12/12/21 12:51 Pain Scale Pain Intensity 0 - Physical Exam General Appearance: no apparent distress, alert, anxiety Eye Exam: bilateral eye: normal inspection, PERRL, EOMI Ear Exam: bilateral ear: auricle normal Nasal Exam: normal inspection Throat Exam: normal, pharynx normal, moist mucus membranes, No voice changes Neck Exam: normal inspection, non-tender, supple, full range of motion, trachea midline Cardiovascular/Respiratory Exam: chest non-tender, no respiratory distress Abdominal Exam: non-tender Neurologic Exam: alert, oriented x 3, cooperative, 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 However, our facility is not carry the reversible agent for Xarelto. Therefore the surgeon on-call requested that we locate another facility that can reverse the Xarelto prior to any surgical intervention. I contacted the pharmacy and we do not carry that medication. 12/12/21 14:21 Patient told the nurse and me initially that he had not taken his Xarelto since yesterday. When he was told that we needed to locate another facility he was disappointed that they could not do the procedure here and then stated that he now was not sure but his last dose of Xarelto might of been 12/10/2021. This did not change the mind of the surgeon. We are waiting a callback from [facility]. 12/12/21 15:35 Dr. Minor Cantu, general surgery, spoke with me and he feels that he can do the procedure here at [facility] even if the patient has been off of his Xarelto for only 1 to [address] Cantu, per his request, to outpatient surgery. Counseled pt/family regarding: diagnosis - Departure Clinical Impression: Esophageal obstruction due to food impaction Condition: Stable Critical Care Time: No Referrals: Crescencio Bradshaw [Primary Care Provider] - Follow up/PCP as directed
[2021-12-12] MEDS ORDERED: DIPRIVAN 200 MG/20 ML IV ONE (15:49)
[2021-12-12] MEDS ORDERED: Quelicin Fliptop 200 MG/10 ML ONE (15:50)
[2021-12-12] MEDS ORDERED: Xylocaine-Mpf 2% 5 Ml Vial ONE (15:51)
[2021-12-12 16:10] LABS: Absolute Neutrophil Ct (ANC) 7.27 x10^3/uL (1.4-6.9); Basophil (Absolute #) 0.06 x10^3/uL (0-0.4); Eosinophil % 0.2 % (0.00-5.0); Eosinophil (Absolute #) 0.02 x10^3/uL (0-0.5); Hematocrit 46.1 % (42-50); Hemoglobin 16.1 g/dL (12.5-18.0); Lymphocyte (Absolute #) 2.24 x10^3/uL (1.0-4.6); Lymphocytes % 21.6 % (24.0-44.0); Mean Corpuscular Hemoglobin 37.4 pg (26-32); Mean Corpuscular Hgb Concent. 34.9 g/dL (32-36); Mean Platelet Volume 8.8 fL (7.5-11.0); Monocyte (Absolute #) 0.74 x10^3/uL (0.0-1.3); Monocytes % 7.1 % (0.0-12.0); Neutrophil % 70.3 % (36.0-66.0); Platelet Count 185 x10^3/uL (150-450); Red Blood Count 4.31 x10^6/uL (4.1-5.6); White Blood Count 10.4 x10^3/uL (4.0-10.5)
[2021-12-12] MEDS ORDERED: Pre-Attached Lta Kit TP ONE (16:12)
[2021-12-12 16:23] LABS: INR 1.05 (0.8-3.0); PROTIME 11.1 SECONDS (9.4-12.5)
[2021-12-12] MEDS ORDERED: SUBLIMAZE 100 MCG/2 ML ONE (16:23)
[2021-12-12] MEDS ORDERED: Lactated Ringers 1,000 ML IV ONE ×2 (16:23→17:08)
[2021-12-12 16:39] LABS: ALBUMIN 4.3 g/dL (3.5-5.0); ALKALINE PHOSPHATASE 109 U/L (38-126); ANION GAP 9.5 MEQ/L (5-15); BLOOD UREA NITROGEN 14 mg/dL (9-20); CHLORIDE 101 mmol/L (98-107); Calcium 8.7 mg/dL (8.4-10.2); Carbon Dioxide 31 mmol/L (22-30); Creatinine 1 0.68 mg/dL (0.66-1.25); EST GLOMERULAR FILTRATION RATE > 60.0 ML/MIN; Glucose 93 mg/dL (74-106); Potassium 3.7 mmol/L (3.5-5.1); SGOT/AST 35 U/L (17-59); SGPT/ALT 32 U/L (0-50); SODIUM 138 mmol/L (137-145)
[2021-12-12] MEDS ORDERED: Decadron 4 MG INJ ONE (17:16)
[2021-12-12] MEDS ORDERED: Ephedrine Sulfate 50 MG/ML ONE (17:16)
[2021-12-12] MEDS ORDERED: Propofol 1000 mg/100 ml Bottle IV ONE (17:25)
[2021-12-12] MEDS ORDERED: KEFZOL 1 GM ONE (17:29)
[2021-12-12] MEDS ORDERED: Zemuron 100 MG/10 ML ONE ×2 (17:45→17:59)
[2021-12-12] MEDS ORDERED: Propofol 1000 mg/100 ml Bottle 100 ML IV ONE ×2 (18:22→19:52)
[2021-12-12] MEDS: Sodium Chloride 0.9% 1000 ML 1,000 ML IV SCH (18:50)
[2021-12-12 18:54] LABS: Absolute Neutrophil Ct (ANC) 6.66 x10^3/uL (1.4-6.9); Basophil (Absolute #) 0.04 x10^3/uL (0-0.4); Eosinophil % 0.3 % (0.00-5.0); Eosinophil (Absolute #) 0.02 x10^3/uL (0-0.5); Hematocrit 41.1 % (42-50); Hemoglobin 14.3 g/dL (12.5-18.0); Lymphocyte (Absolute #) 0.87 x10^3/uL (1.0-4.6); Lymphocytes % 11.1 % (24.0-44.0); Mean Cell Volume 107.3 fL (78-100); Mean Corpuscular Hemoglobin 37.3 pg (26-32); Mean Corpuscular Hgb Concent. 34.8 g/dL (32-36); Monocytes % 2.6 % (0.0-12.0); Neutrophil % 85.2 % (36.0-66.0); Platelet Count 155 x10^3/uL (150-450); Red Blood Count 3.83 x10^6/uL (4.1-5.6); Red Cell Distribution Width 15.2 % (11.5-14.0); White Blood Count 7.8 x10^3/uL (4.0-10.5)
[2021-12-12 18:55] LABS: ABG HEMOGLOBIN 14.6; ABG POTASSIUM 3.4 (3.5-5.1); ABG SITE RIGHT RADIAL; ALLEN TEST OK? YES; ARTERIAL BLD GAS O2 SATURATION 99.7 % (95-100); ARTERIAL BLD GAS TIDAL VOLUME 600 cc; ARTERIAL BLOOD GAS BASE EXCESS 6.8 (-2.0-2.0); ARTERIAL BLOOD GAS FIO2 100 %; ARTERIAL BLOOD GAS PCO2 43 mmHg (35-45); ARTERIAL BLOOD GAS PEEP 5 cmH2O; ARTERIAL BLOOD GAS VENT MODE AC; ARTERIAL BLOOD GAS VENT RATE 12 /MIN; ARTERIAL BLOOD GAS pH 7.47 (7.35-7.45); CARBOXYHEMOGLOBIN 1.5 % THgb (0.0-6.9); HCO3- 31.3 (22-28); HGB O2 SAT 96.8 g/dF (94-100); Methhemoglobin 1.4 % (1.4-1.5)
[2021-12-12 19:05] LABS: Appearance CLEAR (CLEAR); Bilirubin SMALL (NEGATIVE); Dipstick done @ ? MAIN LAB; Glucose NEGATIVE (NEGATIVE); Ketones MODERATE-40 (NEGATIVE); Nitrite NEGATIVE (NEGATIVE); Ph 6.5 (5-6); Protein,Urine Dip 100 (Negative); RBC TRACE-INTACT Ery/ul (0-5); Specific Gravity 1.025 (1.005-1.025); Urobilinogen 0.2 mg/dL (0-1)
[2021-12-12 19:44] LABS: Mucus SLIGHT /HPF (NEGATIVE); RBC 0-2 /HPF (0-2)
[2021-12-12] MEDS ORDERED: solu-MEDROL 80 MG, Sterile H2O 10 ml 2 ML IV SCH ×2 (20:00)
[2021-12-12] MEDS: Propofol 1000 mg/100 ml Bottle 100 ML IV PRN ×3 (20:00→23:19)
[2021-12-12 20:02] LABS: Urine Cultured Indicated? NO
[2021-12-12 20:10] LABS: A-aADO2 284; ABG POTASSIUM 3.7 (3.5-5.1); ABG SITE LEFT RADIAL; ALLEN TEST OK? YES; ARTERIAL BLD GAS O2 SATURATION 98.3 % (95-100); ARTERIAL BLD GAS TIDAL VOLUME 600 cc; ARTERIAL BLOOD GAS BASE EXCESS 3.9 (-2.0-2.0); ARTERIAL BLOOD GAS FIO2 60 %; ARTERIAL BLOOD GAS PCO2 42 mmHg (35-45); ARTERIAL BLOOD GAS PEEP 5 cmH2O; ARTERIAL BLOOD GAS PO2 91 mmHg (75-100); ARTERIAL BLOOD GAS VENT MODE AC; ARTERIAL BLOOD GAS VENT RATE 14 /MIN; ARTERIAL BLOOD GAS pH 7.44 (7.35-7.45); CARBOXYHEMOGLOBIN 1.7 % THgb (0.0-6.9); HCO3- 28.5 (22-28); HGB O2 SAT 95.6 g/dF (94-100)
[2021-12-12] MEDS ORDERED: Sterile H2O 10 ml IJ ONE ×2 (20:33→23:22)
[2021-12-12] MEDS ORDERED: solu-MEDROL ONE ×2 (20:33→23:22)
[2021-12-12] MEDS: CEFAZOLIN 2 GM-D5W BAG** 2 GM/50 ML ML IV SCH (21:03)
[2021-12-12] MEDS ORDERED: ENOXAPARIN SODIUM SQ ONE (22:00)
[2021-12-12 23:34] LABS: A-aADO2 287; ABG HEMOGLOBIN 15.1; ABG POTASSIUM 3.8 (3.5-5.1); ARTERIAL BLD GAS O2 SATURATION 98.6 % (95-100); ARTERIAL BLOOD GAS BASE EXCESS 1.7 (-2.0-2.0); ARTERIAL BLOOD GAS FIO2 60 %; ARTERIAL BLOOD GAS PCO2 38 mmHg (35-45); ARTERIAL BLOOD GAS PO2 93 mmHg (75-100); ARTERIAL BLOOD GAS pH 7.44 (7.35-7.45); CARBOXYHEMOGLOBIN 1.6 % THgb (0.0-6.9); HCO3- 25.8 (22-28); HGB O2 SAT 95.9 g/dF (94-100); Methhemoglobin 1.1 % (1.4-1.5)
[2021-12-12 23:35] LABS: ABG SITE LEFT RADIAL; ALLEN TEST OK? YES; ARTERIAL BLD GAS TIDAL VOLUME 650 cc; ARTERIAL BLOOD GAS PEEP 5 cmH2O; ARTERIAL BLOOD GAS VENT MODE AC; ARTERIAL BLOOD GAS VENT RATE 14 /MIN
[2021-12-13] MEDS: Propofol 1000 mg/100 ml Bottle 100 ML IV PRN ×5 (00:56→07:28)
[2021-12-13] MEDS: solu-MEDROL 80 MG, Sterile H2O 10 ml 2 ML IV SCH ×6 (00:57→13:21)
[2021-12-13] MEDS ORDERED: DUONEB 0.5-3 MG/3 ml Neb IH ONE (01:02)
[2021-12-13] MEDS: Sodium Chloride 0.9% 1000 ML 1,000 ML IV SCH ×2 (04:13→16:22)
[2021-12-13 04:39] LABS: Absolute Neutrophil Ct (ANC) 3.57 x10^3/uL (1.4-6.9); Basophil (Absolute #) 0.01 x10^3/uL (0-0.4); Eosinophil (Absolute #) 0 x10^3/uL (0-0.5); Hematocrit 40.3 % (42-50); Hemoglobin 14.3 g/dL (12.5-18.0); Lymphocytes % 12.1 % (24.0-44.0); Mean Cell Volume 105.5 fL (78-100); Mean Corpuscular Hemoglobin 37.4 pg (26-32); Mean Corpuscular Hgb Concent. 35.5 g/dL (32-36); Mean Platelet Volume 9.1 fL (7.5-11.0); Monocyte (Absolute #) 0.05 x10^3/uL (0.0-1.3); Monocytes % 1.2 % (0.0-12.0); Neutrophil % 86.5 % (36.0-66.0); Platelet Count 149 x10^3/uL (150-450); Red Blood Count 3.82 x10^6/uL (4.1-5.6); White Blood Count 4.1 x10^3/uL (4.0-10.5)
[2021-12-13 04:50] LABS: ANION GAP 11.8 MEQ/L (5-15); BLOOD UREA NITROGEN 12 mg/dL (9-20); CHLORIDE 102 mmol/L (98-107); Calcium 8.3 mg/dL (8.4-10.2); Carbon Dioxide 23 mmol/L (22-30); EST GLOMERULAR FILTRATION RATE > 60.0 ML/MIN; Glucose 165 mg/dL (74-106); Potassium 3.8 mmol/L (3.5-5.1); SODIUM 133 mmol/L (137-145)
[2021-12-13 05:41] LABS: Slide Review 1 YES
[2021-12-13] MEDS ORDERED: solu-MEDROL ONE (05:48)
[2021-12-13] MEDS ORDERED: Sterile H2O 10 ml IJ ONE (05:48)
[2021-12-13] MEDS: CEFAZOLIN 2 GM-D5W BAG** 2 GM/50 ML ML IV SCH ×3 (05:50→13:25)
[2021-12-13] MEDS ORDERED: DUONEB 0.5-3 MG/3 ml Neb IH SCH ×2 (07:00→10:00)
[2021-12-13] MEDS ORDERED: XANAX 1 MG PO PRN (07:18)
[2021-12-13] MEDS ORDERED: SUBLIMAZE 100 MCG/2 ML IV ONE (07:36)
--- NOTE | 2021-12-13 08:42 | XRAY ---
Indication: Tube placement. Comparison: None Portable chest demonstrates endotracheal tube tip approximately 2 cm above jean marie. Remaining chest demonstrates cardiomegaly, bilateral hilar lymphadenopathy, and chunky mediastinal/hilar/pulmonary calcified granulomas. Lungs slightly underinflated and clear. Bony thorax intact.
--- NOTE | 2021-12-13 09:04 | PCM.SSS ---
History of Present Illness - Chief Complaint Chief Complaint: AIRWAY EDEMA History of Present Illness: is a 56 year old male who presented to ER C/O unable to swallow since eating chicken that is lodged mid chest,states hx of steak bolus in the past. Patient was admitted directly to surgery for successful removal of food bolus by Dr Minor Cantu. Patient's PCP is Dr Prashant Aguilar in [place], [place] . PMHx includes HTN (states off meds due to recent 40# weight loss), tremors,DDD on Hydrocodone, Anxiety on Xanax. - Review of Systems Constitutional: No Symptoms Eyes: No Symptoms Ears, Nose, & Throat: No Symptoms Respiratory: No Symptoms Cardiac: No Symptoms Abdominal/Gastrointestinal: Dysphagia (see HPI), Other (denies abdominal pain) Genitourinary Symptoms: No Symptoms Musculoskeletal: Other (chronic pain on Hydrocodone) Neurological: Tremors Psychological: Anxiety Endocrine: No Symptoms Medications & Allergies Home Medications: Home Medication List ALPRAZolam 1 MG [Xanax 1 mg] 1 mg PO BID PRN 03/13/21 [History Confirmed 12/12/21] Hydrocodone/Acetaminophen [Hydrocodone-Acetamin 10-325 mg] 1 tablet PO TID 03/13/21 [History Confirmed 12/12/21] Rivaroxaban 10 mg Tablet [Xarelto 10 mg Tablet] 10 mg PO DAILY 08/16/21 [History Confirmed 12/12/21] Carbidopa/Levodopa 25/100 mg [Sinemet 25/100 MG] 1 tab PO DAILY 12/13/21 [History Confirmed 12/13/21] Allergies/Adverse Reactions: Allergies Allergy/AdvReac Type Severity Reaction Status Date / Time No Known Drug Allergies Allergy Verified 12/12/21 12:47 - Past Medical History Past Medical History: Yes Neurological History: No Pertinent History ENT History: No Pertinent History Cardiac History: No Pertinent History Respiratory History: Pulmonary Embolism Endocrine Medical History: No Pertinent History Musculoskelatal History: Degenerative Disk Disease GI Medical History: No Pertinent History History: No Pertinent History Pyscho-Social History: Anxiety Male Reproductive Disorders: No Pertinent History Comment: PE,. RECALLED PER PREVOIUS STAY - Past Surgical History Past Surgical History: Yes Neuro Surgical History: No Pertinent History Cardiac History: No Pertinent History Respiratory Surgery: No Pertinent History GI Surgical History: No Pertinent History Genitourinary Surgical Hx: No Pertinent History Musculskeletal Surgical Hx: Orthopedic Surgery Male Surgical History: No Pertinent History Other Surgical History: left knee acl. RECALLED PER PREVIOUS STAY - Social History Smoking Status: Unknown if ever smoked Exposure to second hand smoke: No Alcohol: Weekly Drug Use: none - Physical Exam Vital Signs: Vital Signs - 24 hr Temp Pulse Resp BP Pulse Ox 12/13/21 07:08 56 L 14 95 12/13/21 06:59 67 17 137/90 95 12/13/21 06:00 60 14 123/84 95 12/13/21 05:00 58 L 15 124/84 96 12/13/21 03:59 97.7 F 56 L 16 122/83 95 12/13/21 03:00 58 L 15 124/82 95 12/13/21 02:00 59 L 14 113/77 95 12/13/21 01:00 55 L 14 117/82 96 12/13/21 00:00 55 L 12/12/21 23:59 97.5 F 55 L 14 119/79 95 12/12/21 23:00 56 L 14 119/83 95 12/12/21 22:25 54 L 14 134/91 94 L 12/12/21 22:00 67 16 141/107 96 12/12/21 21:30 54 L 14 124/85 96 12/12/21 21:15 56 L 14 123/83 96 12/12/21 21:00 53 L 14 122/81 96 12/12/21 20:45 54 L 14 116/81 96 12/12/21 20:30 54 L 14 115/80 96 12/12/21 20:15 54 L 14 115/83 96 12/12/21 20:00 97.3 F 55 L 15 116/82 95 12/12/21 19:35 97.3 F 59 L 16 120/85 99 12/12/21 19:01 97.3 F 59 L 16 120/85 99 12/12/21 18:20 97.3 F 62 24 127/83 99 12/12/21 15:49 18 98 12/12/21 15:39 97.2 F 68 20 157/119 97 12/12/21 14:00 20 12/12/21 13:33 64 20 157/119 95 12/12/21 12:51 97.2 F 82 18 192/108 97 General Appearance: no apparent distress Neurologic Exam: alert, oriented x 3, cooperative, other (talkative -effects of meds, tremor present (due for Carbidopa/Levadopa)) Eye Exam: eyes nml inspection Ears, Nose, Throat Exam: moist mucous membranes Neck Exam: normal inspection Respiratory Exam: normal breath sounds Cardiovascular Exam: regular rate/rhythm Gastrointestinal/Abdomen Exam: soft, normal bowel sounds (nontender) Extremity Exam: normal inspection Skin Exam: normal color, warm, dry Results - Labs Lab/Micro Results: Lab Results-Last 24 Hours 12/12/21 12/12/21 12/12/21 Range/Units 13:50 13:50 13:50 WBC 10.4 (4.0-10.5) x10^3/uL RBC 4.31 (4.1-5.6) x10^6/uL Hgb 16.1 (12.5-18.0) g/dL Hct 46.1 (42-50) % MCV 107.0 H (78-100) fL MCH 37.4 H (26-32) pg MCHC 34.9 (32-36) g/dL RDW 15.0 H (11.5-14.0) % Plt Count 185 (150-450) x10^3/uL MPV 8.8 (7.5-11.0) fL Gran % 70.3 H (36.0-66.0) % Immature Gran % (Auto) 0.2 (0.00-0.4) % Nucleat RBC Rel Count 0.0 (0.00-0.1) % Eos # (Auto) 0.02 (0-0.5) x10^3/uL Immature Gran # (Auto) 0.02 (0.00-0.03) x10^3u/L Absolute Lymphs (auto) 2.24 (1.0-4.6) x10^3/uL Absolute Monos (auto) 0.74 (0.0-1.3) x10^3/uL Absolute Nucleated RBC 0.00 (0.00-0.01) x10^3u/L Lymphocytes % 21.6 L (24.0-44.0) % Monocytes % 7.1 (0.0-12.0) % Eosinophils % 0.2 (0.00-5.0) % Basophils % 0.6 (0.0-0.4) % Absolute Granulocytes 7.27 H (1.4-6.9) x10^3/uL Basophils # 0.06 (0-0.4) x10^3/uL PT 11.1 (9.4-12.5) SECONDS INR 1.05 (0.8-3.0) Puncture Site pCO2 (35-45) mmHg pO2 (75-100) mmHg Base Excess (-2.0-2.0) O2 Saturation (94-100) g/dF ABG pH (7.35-7.45) ABG HCO3 (22-28) ABG O2 Sat (Measured) (95-100) % Kar Test A-a Gradient a/A Ratio Hemoglobin Carboxyhemoglobin (0.0-6.9) % THgb Methemoglobin (1.4-1.5) % Temperature C POC O2 Flow Rate % Vent Mode Vent Rate /MIN Tidal Volume cc PEEP cmH2O Sodium 138 (137-145) mmol/L Potassium 3.7 (3.5-5.1) mmol/L Chloride 101 (98-107) mmol/L Carbon Dioxide 31 H (22-30) mmol/L Anion Gap 9.5 (5-15) MEQ/L BUN 14 (9-20) mg/dL Creatinine 0.68 (0.66-1.25) mg/dL Estimated GFR > 60.0 ML/MIN Glucose 93 (74-106) mg/dL Calcium 8.7 (8.4-10.2) mg/dL Total Bilirubin 2.00 H (0.2-1.3) mg/dL AST 35 (17-59) U/L ALT 32 (0-50) U/L Alkaline Phosphatase 109 (38-126) U/L Serum Total Protein 7.0 (6.3-8.2) g/dL Albumin 4.3 (3.5-5.0) g/dL Prealbumin (17.6-36.0) mg/dL Urinalys Dipstick Clnc Urine Color (YELLOW) Urine Appearance (CLEAR) Urine pH (5-6) Ur Specific [place] (1.005-1.025) POC Urine Protein Conf (Negative) Urine Ketones (NEGATIVE) Urine Nitrite (NEGATIVE) Urine Bilirubin (NEGATIVE) Urine Urobilinogen (0-1) mg/dL Urine Leukocytes (NEGATIVE) Urine WBC (Auto) (0-5) /HPF Urine RBC (Auto) (0-2) /HPF U Hyaline Cast (Auto) (0-2) /LPF U Epithel Cells (Auto) (FEW) /HPF Urine Bacteria (Auto) (NEGATIVE) /HPF Urine RBC (0-5) Benigno/ul Urine Mucus (Auto) (NEGATIVE) /HPF Ur Culture Indicated? Urine Glucose (NEGATIVE) mg/dL Slides for Path Review 12/12/21 12/12/21 12/12/21 Range/Units 18:35 18:45 18:51 WBC 7.8 (4.0-10.5) x10^3/uL RBC 3.83 L (4.1-5.6) x10^6/uL Hgb 14.3 (12.5-18.0) g/dL Hct 41.1 L (42-50) % MCV 107.3 H (78-100) fL MCH 37.3 H (26-32) pg MCHC 34.8 (32-36) g/dL RDW 15.2 H (11.5-14.0) % Plt Count 155 (150-450) x10^3/uL MPV 9.0 (7.5-11.0) fL Gran % 85.2 H (36.0-66.0) % Immature Gran % (Auto) 0.3 (0.00-0.4) % Nucleat RBC Rel Count 0.0 (0.00-0.1) % Eos # (Auto) 0.02 (0-0.5) x10^3/uL Immature Gran # (Auto) 0.02 (0.00-0.03) x10^3u/L Absolute Lymphs (auto) 0.87 L (1.0-4.6) x10^3/uL Absolute Monos (auto) 0.20 (0.0-1.3) x10^3/uL Absolute Nucleated RBC 0.00 (0.00-0.01) x10^3u/L Lymphocytes % 11.1 L (24.0-44.0) % Monocytes % 2.6 (0.0-12.0) % Eosinophils % 0.3 (0.00-5.0) % Basophils % 0.5 (0.0-0.4) % Absolute Granulocytes 6.66 (1.4-6.9) x10^3/uL Basophils # 0.04 (0-0.4) x10^3/uL PT (9.4-12.5) SECONDS INR (0.8-3.0) Puncture Site RIGHT RADIAL pCO2 43 (35-45) mmHg pO2 (75-100) mmHg Base Excess 6.8 H (-2.0-2.0) O2 Saturation 96.8 (94-100) g/dF ABG pH 7.47 H (7.35-7.45) ABG HCO3 31.3 H* (22-28) ABG O2 Sat (Measured) 99.7 (95-100) % Kar Test YES A-a Gradient a/A Ratio Hemoglobin 14.6 Carboxyhemoglobin 1.5 (0.0-6.9) % THgb Methemoglobin 1.4 (1.4-1.5) % Temperature 37.0 C POC O2 Flow Rate 100 % Vent Mode AC Vent Rate 12 /MIN Tidal Volume 600 cc PEEP 5 cmH2O Sodium (137-145) mmol/L Potassium 3.4 L (3.5-5.1) mmol/L Chloride (98-107) mmol/L Carbon Dioxide (22-30) mmol/L Anion Gap (5-15) MEQ/L BUN (9-20) mg/dL Creatinine (0.66-1.25) mg/dL Estimated GFR ML/MIN Glucose (74-106) mg/dL Calcium (8.4-10.2) mg/dL Total Bilirubin (0.2-1.3) mg/dL AST (17-59) U/L ALT (0-50) U/L Alkaline Phosphatase (38-126) U/L Serum Total Protein (6.3-8.2) g/dL Albumin (3.5-5.0) g/dL Prealbumin (17.6-36.0) mg/dL Urinalys Dipstick Clnc MAIN LAB Urine Color DARK YELLOW (YELLOW) Urine Appearance CLEAR (CLEAR) Urine pH 6.5 (5-6) Ur Specific [place] 1.025 (1.005-1.025) POC Urine Protein Conf 100 (Negative) Urine Ketones MODERATE-40 (NEGATIVE) Urine Nitrite NEGATIVE (NEGATIVE) Urine Bilirubin SMALL (NEGATIVE) Urine Urobilinogen 0.2 (0-1) mg/dL Urine Leukocytes NEGATIVE (NEGATIVE) Urine WBC (Auto) NONE (0-5) /HPF Urine RBC (Auto) 0-2 (0-2) /HPF U Hyaline Cast (Auto) 3-5 (0-2) /LPF U Epithel Cells (Auto) NONE (FEW) /HPF Urine Bacteria (Auto) NONE (NEGATIVE) /HPF Urine RBC TRACE-INTACT (0-5) Benigno/ul Urine Mucus (Auto) SLIGHT (NEGATIVE) /HPF Ur Culture Indicated? NO Urine Glucose NEGATIVE (NEGATIVE) mg/dL Slides for Path Review 12/12/21 12/12/21 12/12/21 Range/Units 19:57 20:05 23:07 WBC (4.0-10.5) x10^3/uL RBC (4.1-5.6) x10^6/uL Hgb (12.5-18.0) g/dL Hct (42-50) % MCV (78-100) fL MCH (26-32) pg MCHC (32-36) g/dL RDW (11.5-14.0) % Plt Count (150-450) x10^3/uL MPV (7.5-11.0) fL Gran % (36.0-66.0) % Immature Gran % (Auto) (0.00-0.4) % Nucleat RBC Rel Count (0.00-0.1) % Eos # (Auto) (0-0.5) x10^3/uL Immature Gran # (Auto) (0.00-0.03) x10^3u/L Absolute Lymphs (auto) (1.0-4.6) x10^3/uL Absolute Monos (auto) (0.0-1.3) x10^3/uL Absolute Nucleated RBC (0.00-0.01) x10^3u/L Lymphocytes % (24.0-44.0) % Monocytes % (0.0-12.0) % Eosinophils % (0.00-5.0) % Basophils % (0.0-0.4) % Absolute Granulocytes (1.4-6.9) x10^3/uL Basophils # (0-0.4) x10^3/uL PT (9.4-12.5) SECONDS INR (0.8-3.0) Puncture Site LEFT RADIAL LEFT RADIAL pCO2 42 38 (35-45) mmHg pO2 91 93 (75-100) mmHg Base Excess 3.9 H 1.7 (-2.0-2.0) O2 Saturation 95.6 95.9 (94-100) g/dF ABG pH 7.44 7.44 (7.35-7.45) ABG HCO3 28.5 H 25.8 (22-28) ABG O2 Sat (Measured) 98.3 98.6 (95-100) % Kar Test YES YES A-a Gradient 284 287 a/A Ratio 0.24 0.24 Hemoglobin 15.0 15.1 Carboxyhemoglobin 1.7 1.6 (0.0-6.9) % THgb Methemoglobin 1.0 L 1.1 L (1.4-1.5) % Temperature 37.0 37.0 C POC O2 Flow Rate 60 60 % Vent Mode AC AC Vent Rate 14 14 /MIN Tidal Volume 600 650 cc PEEP 5 5 cmH2O Sodium (137-145) mmol/L Potassium 3.7 3.8 (3.5-5.1) mmol/L Chloride (98-107) mmol/L Carbon Dioxide (22-30) mmol/L Anion Gap (5-15) MEQ/L BUN (9-20) mg/dL Creatinine (0.66-1.25) mg/dL Estimated GFR ML/MIN Glucose (74-106) mg/dL Calcium (8.4-10.2) mg/dL Total Bilirubin (0.2-1.3) mg/dL AST (17-59) U/L ALT (0-50) U/L Alkaline Phosphatase (38-126) U/L Serum Total Protein (6.3-8.2) g/dL Albumin (3.5-5.0) g/dL Prealbumin 21.95 (17.6-36.0) mg/dL Urinalys Dipstick Clnc Urine Color (YELLOW) Urine Appearance (CLEAR) Urine pH (5-6) Ur Specific [place] (1.005-1.025) POC Urine Protein Conf (Negative) Urine Ketones (NEGATIVE) Urine Nitrite (NEGATIVE) Urine Bilirubin (NEGATIVE) Urine Urobilinogen (0-1) mg/dL Urine Leukocytes (NEGATIVE) Urine WBC (Auto) (0-5) /HPF Urine RBC (Auto) (0-2) /HPF U Hyaline Cast (Auto) (0-2) /LPF U Epithel Cells (Auto) (FEW) /HPF Urine Bacteria (Auto) (NEGATIVE) /HPF Urine RBC (0-5) Benigno/ul Urine Mucus (Auto) (NEGATIVE) /HPF Ur Culture Indicated? Urine Glucose (NEGATIVE) mg/dL Slides for Path Review 12/13/21 12/13/21 Range/Units 04:30 04:30 WBC 4.1 (4.0-10.5) x10^3/uL RBC 3.82 L (4.1-5.6) x10^6/uL Hgb 14.3 (12.5-18.0) g/dL Hct 40.3 L (42-50) % MCV 105.5 H (78-100) fL MCH 37.4 H (26-32) pg MCHC 35.5 (32-36) g/dL RDW 15.0 H (11.5-14.0) % Plt Count 149 L (150-450) x10^3/uL MPV 9.1 (7.5-11.0) fL Gran % 86.5 H (36.0-66.0) % Immature Gran % (Auto) 0.0 (0.00-0.4) % Nucleat RBC Rel Count 0.0 (0.00-0.1) % Eos # (Auto) 0 (0-0.5) x10^3/uL Immature Gran # (Auto) 0.00 (0.00-0.03) x10^3u/L Absolute Lymphs (auto) 0.50 L (1.0-4.6) x10^3/uL Absolute Monos (auto) 0.05 (0.0-1.3) x10^3/uL Absolute Nucleated RBC 0.00 (0.00-0.01) x10^3u/L Lymphocytes % 12.1 L (24.0-44.0) % Monocytes % 1.2 (0.0-12.0) % Eosinophils % 0.0 (0.00-5.0) % Basophils % 0.2 (0.0-0.4) % Absolute Granulocytes 3.57 (1.4-6.9) x10^3/uL Basophils # 0.01 (0-0.4) x10^3/uL PT (9.4-12.5) SECONDS INR (0.8-3.0) Puncture Site pCO2 (35-45) mmHg pO2 (75-100) mmHg Base Excess (-2.0-2.0) O2 Saturation (94-100) g/dF ABG pH (7.35-7.45) ABG HCO3 (22-28) ABG O2 Sat (Measured) (95-100) % Kar Test A-a Gradient a/A Ratio Hemoglobin Carboxyhemoglobin (0.0-6.9) % THgb Methemoglobin (1.4-1.5) % Temperature C POC O2 Flow Rate % Vent Mode Vent Rate /MIN Tidal Volume cc PEEP cmH2O Sodium 133 L (137-145) mmol/L Potassium 3.8 (3.5-5.1) mmol/L Chloride 102 (98-107) mmol/L Carbon Dioxide 23 (22-30) mmol/L Anion Gap 11.8 (5-15) MEQ/L BUN 12 (9-20) mg/dL Creatinine 0.60 L (0.66-1.25) mg/dL Estimated GFR > 60.0 ML/MIN Glucose 165 H (74-106) mg/dL Calcium 8.3 L (8.4-10.2) mg/dL Total Bilirubin (0.2-1.3) mg/dL AST (17-59) U/L ALT (0-50) U/L Alkaline Phosphatase (38-126) U/L Serum Total Protein (6.3-8.2) g/dL Albumin (3.5-5.0) g/dL Prealbumin (17.6-36.0) mg/dL Urinalys Dipstick Clnc Urine Color (YELLOW) Urine Appearance (CLEAR) Urine pH (5-6) Ur Specific [place] (1.005-1.025) POC Urine Protein Conf (Negative) Urine Ketones (NEGATIVE) Urine Nitrite (NEGATIVE) Urine Bilirubin (NEGATIVE) Urine Urobilinogen (0-1) mg/dL Urine Leukocytes (NEGATIVE) Urine WBC (Auto) (0-5) /HPF Urine RBC (Auto) (0-2) /HPF U Hyaline Cast (Auto) (0-2) /LPF U Epithel Cells (Auto) (FEW) /HPF Urine Bacteria (Auto) (NEGATIVE) /HPF Urine RBC (0-5) Benigno/ul Urine Mucus (Auto) (NEGATIVE) /HPF Ur Culture Indicated? Urine Glucose (NEGATIVE) mg/dL Slides for Path Review YES - Radiology Impressions Radiology Exams & Impressions: Radiology Procedures Category Date Time Status CHEST 1 VIEW (PORTABLE) DAILY Exams 12/13/21 08:00 Ordered CHEST 1 VIEW (PORTABLE) Stat Exams 12/12/21 18:30 Completed - Other Procedures and Tests Respiratory Therapy 12/12/21 18:19 Oxygen Nasal Cannula 2 lpm 12/13/21 01:18 Respiratory Therapy Assessment DAILY Assessment/Plan (1) Esophageal obstruction due to food impaction Current Visit: Yes Status: Resolved Assessment & Plan: ICU overnight due to intubated and sedated for maintenance of airway post traumatic removal of chicken and chicken bones by EGD. Code(s): K22.2 - ESOPHAGEAL OBSTRUCTION; T18.128A - FOOD IN ESOPHAGUS CAUSING OTHER INJURY, INITIAL ENCOUNTER (2) Elevated blood pressure reading with diagnosis of hypertension Current Visit: Yes Status: Acute Assessment & Plan: Metoprolol 25mg succinate 1 x dose Code(s): I10 - ESSENTIAL (PRIMARY) HYPERTENSION (3) Tremor Current Visit: Yes Status: Chronic Code(s): R25.1 - TREMOR, UNSPECIFIED (4) DDD (degenerative disc disease) Current Visit: Yes Status: Chronic Code(s): UWP2742 - Hospital Summary - Hospital Course Hospital Course: Patient present to ER with food bolus in esophagus. Traumatic removal of chicken with bones from esophagus by EGD (see Dr Minor Cantu full surgery report) Patient was monitored in ICU overnight due to ET tube placed to maintain airway ,given Propofol for sedation, IV steroids,antibiotics and fluids. ET removed by anesthesia this morning without any set backs. Has tolerated ice chips then water and now soft foods . Will continue to monitor throughout the day and consider discharge home later today to the care of a friend and to follow with PCP tomorrow. - Vitals & Intake/Output Vital Signs: Vital Signs Temperature 97.7 F 12/13/21 03:59 Pulse Rate 56 L 12/13/21 07:08 Respiratory Rate 14 12/13/21 07:08 Blood Pressure 137/90 12/13/21 06:59 O2 Sat by Pulse Oximetry 95 12/13/21 07:08 Intake & Output: Intake & Output 12/10/21 12/11/21 12/12/21 12/13/21 11:59 11:59 11:59 11:59 Intake Total 2045 Output Total 800 Balance 1245 Weight 105.3 kg - Lab Result Diagrams: 12/13/21 04:30 12/13/21 04:30 Lab Results-Last 24 Hrs: Lab Results-Last 24 Hours 12/12/21 12/12/21 12/12/21 Range/Units 13:50 13:50 13:50 WBC 10.4 (4.0-10.5) x10^3/uL RBC 4.31 (4.1-5.6) x10^6/uL Hgb 16.1 (12.5-18.0) g/dL Hct 46.1 (42-50) % MCV 107.0 H (78-100) fL MCH 37.4 H (26-32) pg MCHC 34.9 (32-36) g/dL RDW 15.0 H (11.5-14.0) % Plt Count 185 (150-450) x10^3/uL MPV 8.8 (7.5-11.0) fL Gran % 70.3 H (36.0-66.0) % Immature Gran % (Auto) 0.2 (0.00-0.4) % Nucleat RBC Rel Count 0.0 (0.00-0.1) % Eos # (Auto) 0.02 (0-0.5) x10^3/uL Immature Gran # (Auto) 0.02 (0.00-0.03) x10^3u/L Absolute Lymphs (auto) 2.24 (1.0-4.6) x10^3/uL Absolute Monos (auto) 0.74 (0.0-1.3) x10^3/uL Absolute Nucleated RBC 0.00 (0.00-0.01) x10^3u/L Lymphocytes % 21.6 L (24.0-44.0) % Monocytes % 7.1 (0.0-12.0) % Eosinophils % 0.2 (0.00-5.0) % Basophils % 0.6 (0.0-0.4) % Absolute Granulocytes 7.27 H (1.4-6.9) x10^3/uL Basophils # 0.06 (0-0.4) x10^3/uL PT 11.1 (9.4-12.5) SECONDS INR 1.05 (0.8-3.0) Puncture Site pCO2 (35-45) mmHg pO2 (75-100) mmHg Base Excess (-2.0-2.0) O2 Saturation (94-100) g/dF ABG pH (7.35-7.45) ABG HCO3 (22-28) ABG O2 Sat (Measured) (95-100) % Kar Test A-a Gradient a/A Ratio Hemoglobin Carboxyhemoglobin (0.0-6.9) % THgb Methemoglobin (1.4-1.5) % Temperature C POC O2 Flow Rate % Vent Mode Vent Rate /MIN Tidal Volume cc PEEP cmH2O Sodium 138 (137-145) mmol/L Potassium 3.7 (3.5-5.1) mmol/L Chloride 101 (98-107) mmol/L Carbon Dioxide 31 H (22-30) mmol/L Anion Gap 9.5 (5-15) MEQ/L BUN 14 (9-20) mg/dL Creatinine 0.68 (0.66-1.25) mg/dL Estimated GFR > 60.0 ML/MIN Glucose 93 (74-106) mg/dL Calcium 8.7 (8.4-10.2) mg/dL Total Bilirubin 2.00 H (0.2-1.3) mg/dL AST 35 (17-59) U/L ALT 32 (0-50) U/L Alkaline Phosphatase 109 (38-126) U/L Serum Total Protein 7.0 (6.3-8.2) g/dL Albumin 4.3 (3.5-5.0) g/dL Prealbumin (17.6-36.0) mg/dL Urinalys Dipstick Clnc Urine Color (YELLOW) Urine Appearance (CLEAR) Urine pH (5-6) Ur Specific [place] (1.005-1.025) POC Urine Protein Conf (Negative) Urine Ketones (NEGATIVE) Urine Nitrite (NEGATIVE) Urine Bilirubin (NEGATIVE) Urine Urobilinogen (0-1) mg/dL Urine Leukocytes (NEGATIVE) Urine WBC (Auto) (0-5) /HPF Urine RBC (Auto) (0-2) /HPF U Hyaline Cast (Auto) (0-2) /LPF U Epithel Cells (Auto) (FEW) /HPF Urine Bacteria (Auto) (NEGATIVE) /HPF Urine RBC (0-5) Benigno/ul Urine Mucus (Auto) (NEGATIVE) /HPF Ur Culture Indicated? Urine Glucose (NEGATIVE) mg/dL Slides for Path Review 12/12/21 12/12/21 12/12/21 Range/Units 18:35 18:45 18:51 WBC 7.8 (4.0-10.5) x10^3/uL RBC 3.83 L (4.1-5.6) x10^6/uL Hgb 14.3 (12.5-18.0) g/dL Hct 41.1 L (42-50) % MCV 107.3 H (78-100) fL MCH 37.3 H (26-32) pg MCHC 34.8 (32-36) g/dL RDW 15.2 H (11.5-14.0) % Plt Count 155 (150-450) x10^3/uL MPV 9.0 (7.5-11.0) fL Gran % 85.2 H (36.0-66.0) % Immature Gran % (Auto) 0.3 (0.00-0.4) % Nucleat RBC Rel Count 0.0 (0.00-0.1) % Eos # (Auto) 0.02 (0-0.5) x10^3/uL Immature Gran # (Auto) 0.02 (0.00-0.03) x10^3u/L Absolute Lymphs (auto) 0.87 L (1.0-4.6) x10^3/uL Absolute Monos (auto) 0.20 (0.0-1.3) x10^3/uL Absolute Nucleated RBC 0.00 (0.00-0.01) x10^3u/L Lymphocytes % 11.1 L (24.0-44.0) % Monocytes % 2.6 (0.0-12.0) % Eosinophils % 0.3 (0.00-5.0) % Basophils % 0.5 (0.0-0.4) % Absolute Granulocytes 6.66 (1.4-6.9) x10^3/uL Basophils # 0.04 (0-0.4) x10^3/uL PT (9.4-12.5) SECONDS INR (0.8-3.0) Puncture Site RIGHT RADIAL pCO2 43 (35-45) mmHg pO2 (75-100) mmHg Base Excess 6.8 H (-2.0-2.0) O2 Saturation 96.8 (94-100) g/dF ABG pH 7.47 H (7.35-7.45) ABG HCO3 31.3 H* (22-28) ABG O2 Sat (Measured) 99.7 (95-100) % Kar Test YES A-a Gradient a/A Ratio Hemoglobin 14.6 Carboxyhemoglobin 1.5 (0.0-6.9) % THgb Methemoglobin 1.4 (1.4-1.5) % Temperature 37.0 C POC O2 Flow Rate 100 % Vent Mode AC Vent Rate 12 /MIN Tidal Volume 600 cc PEEP 5 cmH2O Sodium (137-145) mmol/L Potassium 3.4 L (3.5-5.1) mmol/L Chloride (98-107) mmol/L Carbon Dioxide (22-30) mmol/L Anion Gap (5-15) MEQ/L BUN (9-20) mg/dL Creatinine (0.66-1.25) mg/dL Estimated GFR ML/MIN Glucose (74-106) mg/dL Calcium (8.4-10.2) mg/dL Total Bilirubin (0.2-1.3) mg/dL AST (17-59) U/L ALT (0-50) U/L Alkaline Phosphatase (38-126) U/L Serum Total Protein (6.3-8.2) g/dL Albumin (3.5-5.0) g/dL Prealbumin (17.6-36.0) mg/dL Urinalys Dipstick Clnc MAIN LAB Urine Color DARK YELLOW (YELLOW) Urine Appearance CLEAR (CLEAR) Urine pH 6.5 (5-6) Ur Specific [place] 1.025 (1.005-1.025) POC Urine Protein Conf 100 (Negative) Urine Ketones MODERATE-40 (NEGATIVE) Urine Nitrite NEGATIVE (NEGATIVE) Urine Bilirubin SMALL (NEGATIVE) Urine Urobilinogen 0.2 (0-1) mg/dL Urine Leukocytes NEGATIVE (NEGATIVE) Urine WBC (Auto) NONE (0-5) /HPF Urine RBC (Auto) 0-2 (0-2) /HPF U Hyaline Cast (Auto) 3-5 (0-2) /LPF U Epithel Cells (Auto) NONE (FEW) /HPF Urine Bacteria (Auto) NONE (NEGATIVE) /HPF Urine RBC TRACE-INTACT (0-5) Benigno/ul Urine Mucus (Auto) SLIGHT (NEGATIVE) /HPF Ur Culture Indicated? NO Urine Glucose NEGATIVE (NEGATIVE) mg/dL Slides for Path Review 12/12/21 12/12/21 12/12/21 Range/Units 19:57 20:05 23:07 WBC (4.0-10.5) x10^3/uL RBC (4.1-5.6) x10^6/uL Hgb (12.5-18.0) g/dL Hct (42-50) % MCV (78-100) fL MCH (26-32) pg MCHC (32-36) g/dL RDW (11.5-14.0) % Plt Count (150-450) x10^3/uL MPV (7.5-11.0) fL Gran % (36.0-66.0) % Immature Gran % (Auto) (0.00-0.4) % Nucleat RBC Rel Count (0.00-0.1) % Eos # (Auto) (0-0.5) x10^3/uL Immature Gran # (Auto) (0.00-0.03) x10^3u/L Absolute Lymphs (auto) (1.0-4.6) x10^3/uL Absolute Monos (auto) (0.0-1.3) x10^3/uL Absolute Nucleated RBC (0.00-0.01) x10^3u/L Lymphocytes % (24.0-44.0) % Monocytes % (0.0-12.0) % Eosinophils % (0.00-5.0) % Basophils % (0.0-0.4) % Absolute Granulocytes (1.4-6.9) x10^3/uL Basophils # (0-0.4) x10^3/uL PT (9.4-12.5) SECONDS INR (0.8-3.0) Puncture Site LEFT RADIAL LEFT RADIAL pCO2 42 38 (35-45) mmHg pO2 91 93 (75-100) mmHg Base Excess 3.9 H 1.7 (-2.0-2.0) O2 Saturation 95.6 95.9 (94-100) g/dF ABG pH 7.44 7.44 (7.35-7.45) ABG HCO3 28.5 H 25.8 (22-28) ABG O2 Sat (Measured) 98.3 98.6 (95-100) % Kar Test YES YES A-a Gradient 284 287 a/A Ratio 0.24 0.24 Hemoglobin 15.0 15.1 Carboxyhemoglobin 1.7 1.6 (0.0-6.9) % THgb Methemoglobin 1.0 L 1.1 L (1.4-1.5) % Temperature 37.0 37.0 C POC O2 Flow Rate 60 60 % Vent Mode AC AC Vent Rate 14 14 /MIN Tidal Volume 600 650 cc PEEP 5 5 cmH2O Sodium (137-145) mmol/L Potassium 3.7 3.8 (3.5-5.1) mmol/L Chloride (98-107) mmol/L Carbon Dioxide (22-30) mmol/L Anion Gap (5-15) MEQ/L BUN (9-20) mg/dL Creatinine (0.66-1.25) mg/dL Estimated GFR ML/MIN Glucose (74-106) mg/dL Calcium (8.4-10.2) mg/dL Total Bilirubin (0.2-1.3) mg/dL AST (17-59) U/L ALT (0-50) U/L Alkaline Phosphatase (38-126) U/L Serum Total Protein (6.3-8.2) g/dL Albumin (3.5-5.0) g/dL Prealbumin 21.95 (17.6-36.0) mg/dL Urinalys Dipstick Clnc Urine Color (YELLOW) Urine Appearance (CLEAR) Urine pH (5-6) Ur Specific [place] (1.005-1.025) POC Urine Protein Conf (Negative) Urine Ketones (NEGATIVE) Urine Nitrite (NEGATIVE) Urine Bilirubin (NEGATIVE) Urine Urobilinogen (0-1) mg/dL Urine Leukocytes (NEGATIVE) Urine WBC (Auto) (0-5) /HPF Urine RBC (Auto) (0-2) /HPF U Hyaline Cast (Auto) (0-2) /LPF U Epithel Cells (Auto) (FEW) /HPF Urine Bacteria (Auto) (NEGATIVE) /HPF Urine RBC (0-5) Benigno/ul Urine Mucus (Auto) (NEGATIVE) /HPF Ur Culture Indicated? Urine Glucose (NEGATIVE) mg/dL Slides for Path Review 12/13/21 12/13/21 Range/Units 04:30 04:30 WBC 4.1 (4.0-10.5) x10^3/uL RBC 3.82 L (4.1-5.6) x10^6/uL Hgb 14.3 (12.5-18.0) g/dL Hct 40.3 L (42-50) % MCV 105.5 H (78-100) fL MCH 37.4 H (26-32) pg MCHC 35.5 (32-36) g/dL RDW 15.0 H (11.5-14.0) % Plt Count 149 L (150-450) x10^3/uL MPV 9.1 (7.5-11.0) fL Gran % 86.5 H (36.0-66.0) % Immature Gran % (Auto) 0.0 (0.00-0.4) % Nucleat RBC Rel Count 0.0 (0.00-0.1) % Eos # (Auto) 0 (0-0.5) x10^3/uL Immature Gran # (Auto) 0.00 (0.00-0.03) x10^3u/L Absolute Lymphs (auto) 0.50 L (1.0-4.6) x10^3/uL Absolute Monos (auto) 0.05 (0.0-1.3) x10^3/uL Absolute Nucleated RBC 0.00 (0.00-0.01) x10^3u/L Lymphocytes % 12.1 L (24.0-44.0) % Monocytes % 1.2 (0.0-12.0) % Eosinophils % 0.0 (0.00-5.0) % Basophils % 0.2 (0.0-0.4) % Absolute Granulocytes 3.57 (1.4-6.9) x10^3/uL Basophils # 0.01 (0-0.4) x10^3/uL PT (9.4-12.5) SECONDS INR (0.8-3.0) Puncture Site pCO2 (35-45) mmHg pO2 (75-100) mmHg Base Excess (-2.0-2.0) O2 Saturation (94-100) g/dF ABG pH (7.35-7.45) ABG HCO3 (22-28) ABG O2 Sat (Measured) (95-100) % Kar Test A-a Gradient a/A Ratio Hemoglobin Carboxyhemoglobin (0.0-6.9) % THgb Methemoglobin (1.4-1.5) % Temperature C POC O2 Flow Rate % Vent Mode Vent Rate /MIN Tidal Volume cc PEEP cmH2O Sodium 133 L (137-145) mmol/L Potassium 3.8 (3.5-5.1) mmol/L Chloride 102 (98-107) mmol/L Carbon Dioxide 23 (22-30) mmol/L Anion Gap 11.8 (5-15) MEQ/L BUN 12 (9-20) mg/dL Creatinine 0.60 L (0.66-1.25) mg/dL Estimated GFR > 60.0 ML/MIN Glucose 165 H (74-106) mg/dL Calcium 8.3 L (8.4-10.2) mg/dL Total Bilirubin (0.2-1.3) mg/dL AST (17-59) U/L ALT (0-50) U/L Alkaline Phosphatase (38-126) U/L Serum Total Protein (6.3-8.2) g/dL Albumin (3.5-5.0) g/dL Prealbumin (17.6-36.0) mg/dL Urinalys Dipstick Clnc Urine Color (YELLOW) Urine Appearance (CLEAR) Urine pH (5-6) Ur Specific [place] (1.005-1.025) POC Urine Protein Conf (Negative) Urine Ketones (NEGATIVE) Urine Nitrite (NEGATIVE) Urine Bilirubin (NEGATIVE) Urine Urobilinogen (0-1) mg/dL Urine Leukocytes (NEGATIVE) Urine WBC (Auto) (0-5) /HPF Urine RBC (Auto) (0-2) /HPF U Hyaline Cast (Auto) (0-2) /LPF U Epithel Cells (Auto) (FEW) /HPF Urine Bacteria (Auto) (NEGATIVE) /HPF Urine RBC (0-5) Benigno/ul Urine Mucus (Auto) (NEGATIVE) /HPF Ur Culture Indicated? Urine Glucose (NEGATIVE) mg/dL Slides for Path Review YES - Radiology Exams Ordered Rad Exams-Entire Visit: Radiology Procedures Category Date Time Status CHEST 1 VIEW (PORTABLE) DAILY Exams 12/13/21 08:00 Ordered CHEST 1 VIEW (PORTABLE) Stat Exams 12/12/21 18:30 Completed - Procedures and Test Procedures and Tests throughout Hospitalization: Therapy Orders & Screens 12/12/21 18:00 Respiratory Therapy Consult ONCE Comment: Reason For Exam: 12/12/21 18:18 Vent Settings [Ventilator Management] Q4H Comment: 12/12/21 18:19 Oxygen Nasal Cannula 2 lpm Comment: 12/12/21 19:23 Ventilator Management ROUTINE Comment: 12/13/21 01:18 Respiratory Therapy Assessment DAILY Comment: Diagnosis: AIRWAY EDEMA - Discharge Condition: Stable Prescriptions: No Action Hydrocodone/Acetaminophen [Hydrocodone-Acetamin 10-325 mg] 1 tablet PO TID ALPRAZolam 1 MG [Xanax 1 mg] 1 mg PO BID PRN PRN Reason: Anxiety Rivaroxaban 10 mg Tablet [Xarelto 10 mg Tablet] 10 mg PO DAILY Carbidopa/Levodopa 25/100 mg [Sinemet 25/100 MG] 1 tab PO DAILY Follow up with: Crescencio Bradshaw [Primary Care Provider] - 12/19/21 3:30 pm
[2021-12-13] MEDS ORDERED: FLUZONE QUAD 2022-2023 SYRINGE IM ONE (10:00)
[2021-12-13] MEDS ORDERED: Sinemet 25/100 MG PO SCH (10:00)
[2021-12-13] MEDS ORDERED: ENOXAPARIN SODIUM SQ ONE (10:00)
[2021-12-13] MEDS: HYDROCODONE-ACETAMIN 10-325 MG PO SCH ×2 (10:04→16:23)
--- NOTE | 2021-12-13 11:16 | XRAY ---
Indication: Extubation. Comparison: One day earlier Portable chest better inflated with interval extubation. New right suprahilar and left infrahilar subsegmental atelectasis/scarring. Again incidental scattered calcified granulomas. Heart not enlarged. No acute findings.
[2021-12-13] MEDS ORDERED: Toprol-Xl 25MG Tablets PO SCH (13:00)
[2021-12-13 15:59] VITALS: BP 163/85; O2SAT 97
[2021-12-13 16:10] VITALS: PULSE 87
--- NOTE | 2021-12-14 09:32 | OP ---
SURGERY DATE/TIME: 12/12/2021 1621 PREOPERATIVE DIAGNOSIS: Lodged food bolus. POSTOPERATIVE DIAGNOSIS: Lodged chicken this was a boneless hot wing basically the full wing. Additionally, the patient has had food boluses two previous times so this is the third episode. PROCEDURE: EGD with food bolus removal. SURGEON: Minor Cantu M.D. ANESTHESIA: General by Saulo Wakefield CRNA. COMPLICATIONS: None. CONDITION: Stable. INDICATION: The patient has a lodged food bolus. DESCRIPTION OF PROCEDURE: Taken to endoscopy. Endotracheal intubation because of the situation. The scope was introduced. It was totally occluding distal esophagus. It was a little loose around the edges initially. It looked like it was about 3 inches long and inch wide. It was broken up into several pieces. The smaller pieces were initially brought out and subsequently the two larger pieces were bivalved were able to be pushed down into the stomach. There was a little denuding of the right anterolateral esophagus for about 2 inches down by the gastroesophageal junction this looks satisfactory. The gastroesophageal junction was about a size 44 to 46. No dilatation in today's acute inflammation. The specimen did stay down in the stomach and withdrawal was satisfactory. It had taken quite a bit of in and outs and we had concern about laryngeal edema. Steroids were given. He was left intubated over the night.
[2021-12-14] MEDS ORDERED: XARELTO 10 MG TABLET PO SCH (10:00)
== END 2021-12-13 17:15 | disposition home or self-care (01) ==
LOC: ED 12:33 → ICU 18:04 → INTOOBSV 18:04
PROVIDERS: ADMIT Family Medicine; ATTEND Family Medicine
DX: K22.2 Esophageal obstruction (principal); T18.128A Food in esophagus causing other injury, initial encounter; I10 Essential (primary) hypertension; R25.1 Tremor, unspecified; M51.36 Other intervertebral disc degeneration, lumbar region; Z79.899 Other long term (current) drug therapy; Z20.828 Contact with and (suspected) exposure to other viral communicable diseases
CPT/HCPCS: 36000; 36415; 36600; 71045; 80048; 80053; 81015; 82375; 82803; 84134; 85025; 85610; 93268; 94002; 94003; 94640; 99140; 99283; J0330; J0690; J1100; J1650; J2704; J2930; J3010; A9270-GY; G0378

== ENCOUNTER 2022-04-06 05:51 | Day surgery (SDC) | payer OTHER ==
--- NOTE | 2022-04-05 12:09 | HP ---
DATE OF SURGERY: 04/06/2022 HISTORY OF PRESENT ILLNESS: The patient is a 56-year-old male presents with complaints of dysphagia. The patient reportedly had EGD here recently for food bolus. He had some chicken stuck. He was started on some proton pump inhibitor. The patient reported that he had some shredded wheat here just recently that got stuck. PAST MEDICAL HISTORY: Hypertension. Gastroesophageal reflux disease. Emphysema. Anxiety. PAST SURGICAL HISTORY: Knee arthroscopy, ACL repair. ALLERGIES: NKDA. MEDICATIONS: Tizanidine, ibuprofen, clonazepam, metoprolol, omeprazole, Albuterol, gabapentin, Eliquis. FAMILY HISTORY: Lung cancer. Breast cancer. SOCIAL HISTORY: None reported. REVIEW OF SYSTEMS: CONSTITUTIONAL: Denies fever or chills. CHEST: Denies shortness of breath. CVS: Denies chest pain. ABDOMEN: Denies abdominal pain. PHYSICAL EXAMINATION: GENERAL: No acute distress. CHEST: Nonlabored. No shortness of breath. CVS: Regular rate and rhythm. ABDOMEN: Soft. IMPRESSION: Dysphagia. PLAN: EGD with possible dilatation with Dr. Minor Cantu. As dictated by Consuelo Dahl NP.
[2022-04-06] MEDS ORDERED: Lactated Ringers 1,000 ML IV ONE (06:26)
[2022-04-06] MEDS ORDERED: Lactated Ringers 1,000 ML IV SCH (06:30)
[2022-04-06] MEDS ORDERED: DIPRIVAN 200 MG/20 ML IV ONE (09:04)
[2022-04-06] MEDS ORDERED: Versed 2 MG/2 ML Injection ONE (09:04)
[2022-04-06 09:35] VITALS: O2SAT 96
[2022-04-06 09:42] VITALS: BP 158/98; PULSE 78
--- NOTE | 2022-04-06 10:41 | OP ---
SURGERY DATE/TIME: 04/06/2022 0907 PREOPERATIVE DIAGNOSIS: Dysphagia, recent food bolus removal. POSTOPERATIVE DIAGNOSIS: Dysphagia, recent food bolus removal. PROCEDURE: EGD and dilatation. SURGEON: Minor Cantu M.D. ANESTHESIA: MAC. COMPLICATIONS: None. CONDITION: Stable. INDICATION: The patient had foreign body (chicken) stuck in esophagus six weeks ago. He has a history of gastroesophageal reflux disease. He presents at this time for dilatation. DESCRIPTION OF PROCEDURE: He is taken to endoscopy. Left lateral decubitus position. Scope introduced. Pharyngoesophageal junction normal. Esophagus normal down to gastroesophageal junction. There is chronic distal esophagitis and grade 3 gastroesophageal reflux disease. There is no hiatal hernia today. Fundus, body and antrum normal. Pylorus normal. Duodenal bulb normal. Second portion normal. Scope withdrawn looped upon itself. No hiatal hernia. The patient had just had an obstruction. Size 48 was the maximum Stevens here. It was placed and dilated this up to at least a 48. The scope was reintroduced. It looked excellent. There is no suggestion of any issue or bleeding. He can be started on his blood thinner tomorrow morning.
== END 2022-04-06 09:45 | disposition home or self-care (01) ==
LOC: SDC 05:51
PROVIDERS: ATTEND Surgery
DX: R13.10 Dysphagia, unspecified (principal); T18.128D Food in esophagus causing other injury, subsequent encounter
CPT/HCPCS: J2250; J2704

== ENCOUNTER 2022-08-10 08:11 | Emergency (ER) | payer OTHER ==
[2022-08-10] MEDS ORDERED: BABY ASPIRIN 81 MG CHEW PO ONE (08:21)
--- NOTE | 2022-08-10 08:21 | ERPHSYRPT ---
- History of Present Illness Time Seen by Provider: 08/10/22 08:21 Historian: patient, family Exam Limitations: no limitations Physician History: This is a 56-year-old white male patient who presents with left lower chest pain that is sharp and worsens with deep breath. He is not particular short of breath. Patient has a history of DVT and pulmonary embolus but he is on Eliquis at this time. He has some anxiety issues and he has a history of Parkinson's disease. He has a history of gastroesophageal reflux disease and prostate issues as well. Patient denies fever. He denies cough. He has had no nausea vomiting or diarrhea. He has no primary cardiac issue that he is aware of. He does not see a tenant selector. Timing/Duration: yesterday Activities at Onset: none Quality: sharpness, stabbing Location: other (Left lower chest) Chest Pain Radiation: no radiation Severity of Pain-Max: mild (To moderate) Severity of Pain-Current: mild (To moderate) Modifying Factors: Improves With: breathing (Deep breath worsens) Associated Symptoms: denies symptoms Prior Chest Pain/Cardiac Workup: pulmonary embolism Nitro Today/Relief: no nitro taken today Aspirin Treatment Today: no aspirin today Allergies/Adverse Reactions: No Known Drug Allergies Allergy (Verified 08/10/22 08:36) Home Medications: Hydrocodone/Acetaminophen [Hydrocodone-Acetamin 10-325 mg] 1 tablet PO TID 03/13/21 [History] Carbidopa/Levodopa 25/100 mg [Sinemet 25/100 MG] 3 tab PO DAILY 12/13/21 [History] Clonazepam [Klonopin] 10 mg PO DAILY 03/17/22 [History] Tamsulosin HCl 0.4 mg [Flomax 0.4 MG] 0.4 mg PO DAILY 03/17/22 [History] Zolpidem Tartrate 10 mg [Ambien 10 MG] 10 mg PO HS 04/04/22 [History] Ibuprofen 800 mg PO BID PRN PRN 04/06/22 [History] Hx Tetanus, Diphtheria Vaccination/Date Given: No (unknown) Hx Influenza Vaccination/Date Given: No Hx Pneumococcal Vaccination/Date Given: No Travel Risk - International Travel Have you traveled outside of the country in past 3 weeks: No - Coronavirus Screening Are you exhibiting any of the following symptoms?: No Close contact with a COVID-19 positive Pt in past 14-21 Days: No - Vaccine Status Have you recieved a Covid-19 vaccination: Yes 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 - Review of Systems Constitutional: No Symptoms Eyes: No Symptoms Ears, Nose, & Throat: No Symptoms, Throat Swelling Cardiac: Chest Pain (Left anterior lateral ribslower) Abdominal/Gastrointestinal: No Symptoms Genitourinary Symptoms: No Symptoms Musculoskeletal: No Symptoms Skin: No Symptoms Neurological: No Symptoms Psychological: No Symptoms Endocrine: No Symptoms Hematologic/Lymphatic: No Symptoms Immunological/Allergic: No Symptoms All Other Systems: Reviewed and Negative - Past Medical History Pertinent Past Medical History: Yes Neurological History: No Pertinent History ENT History: No Pertinent History Cardiac History: No Pertinent History Respiratory History: COPD, Pulmonary Embolism, Sleep Apnea Endocrine Medical History: No Pertinent History Musculoskeletal History: Degenerative Disk Disease GI Medical History: No Pertinent History History: No Pertinent History Psycho-Social History: Anxiety Male Reproductive Disorders: No Pertinent History Other Medical History: PE - Past Surgical History Past Surgical History: Yes Neuro Surgical History: No Pertinent History Cardiac: No Pertinent History Respiratory: No Pertinent History Gastrointestinal: No Pertinent History Genitourinary: No Pertinent History Musculoskeletal: Orthopedic Surgery Male Surgical History: No Pertinent History Other Surgical History: left knee acl - Social History Smoking Status: Unknown if ever smoked Exposure to second hand smoke: No Drug Use: none Patient Lives Alone: Yes - Nursing Vital Signs Nursing Vital Signs: Initial Vital Signs Temperature 97.3 F 08/10/22 08:20 Pulse Rate 72 08/10/22 08:20 Respiratory Rate 17 08/10/22 08:20 Blood Pressure 165/121 08/10/22 08:20 O2 Sat by Pulse Oximetry 93 L 08/10/22 08:20 Pain Scale Pain Intensity 6 - Physical Exam General Appearance: no apparent distress, alert, anxiety Eye Exam: PERRL/EOMI, eyes nml inspection Ears, Nose, Throat Exam: normal ENT inspection, moist mucous membranes Neck Exam: normal inspection, non-tender, supple, full range of motion Respiratory Exam: normal breath sounds, chest tenderness (Left lower anterolateral ribs chest), lungs clear, airway intact, No respiratory distress Cardiovascular Exam: regular rate/rhythm, normal heart sounds, normal peripheral pulses Gastrointestinal/Abdomen Exam: soft, normal bowel sounds, No tenderness Rectal Exam: not done Back Exam: normal inspection, normal range of motion, No CVA tenderness, No vertebral tenderness Extremity Exam: normal inspection, normal range of motion, pelvis stable Neurologic Exam: alert, oriented x 3, cooperative, renal medicine physician II-XII nml as tested, normal mood/affect, nml cerebellar function, nml station & gait, sensation nml Skin Exam: normal color, warm, dry Lymphatic Exam: No adenopathy SpO2 Interpretation: normal O2 Delivery: Room Air - Course Nursing assessment & vital signs reviewed: Yes EKG Interpreted by Me: RATE (71), Sinus Rhythm, NORMAL AXIS, NORMAL INTERVALS, NORMAL QRS, NORMAL ST-T, Other (No acute ischemic changes on today's twelve-lead EKG.) Ordered Tests: Active Orders 24 hr Category Date Time Status EKG-ER Only STAT Care 08/10/22 08:21 Active IV Insertion STAT Care 08/10/22 08:21 Active Pulse Oximetry (ED) STAT Care 08/10/22 08:21 Active CHEST 1 VIEW (PORTABLE) Stat Exams 08/10/22 08:21 Completed CHEST WITH CONTRAST [CT] Stat Exams 08/10/22 09:31 Completed CBC W DIFF Stat Lab 08/10/22 08:34 Completed CMP Stat Lab 08/10/22 08:34 Completed D-DIMER QUANTITATIVE Stat Lab 08/10/22 08:34 Completed NT PRO BNPII Stat Lab 08/10/22 08:34 Completed TROPONIN Q4H Lab 08/10/22 08:34 Completed TROPONIN Q4H Lab 08/10/22 12:30 Ordered TROPONIN Q4H Lab 08/10/22 16:30 Ordered Medication Summary Discontinued Medications Generic Name Dose Route Start Last Admin Trade Name Freq PRN Reason Stop Dose Admin Aspirin 324 mg 08/10/22 08:21 08/10/22 08:36 Aspirin 81 Mg Tab.Chew PO 08/10/22 08:22 324 mg STAT ONE Administration Aspirin Confirm 08/10/22 08:38 Aspirin 81 Mg Tab.Chew Administered 08/10/22 08:39 Dose 324 mg .ROUTE .STK-MED ONE Sodium Chloride 500 mls @ 500 mls/hr 08/10/22 09:30 08/10/22 10:42 Sodium Chloride 0.9% 500 Ml IV 08/10/22 10:29 Infused .Q1H ONE Infusion Sodium Chloride Confirm 08/10/22 09:36 Sodium Chloride 0.9% 500 Ml Administered 08/10/22 09:37 Dose 500 mls @ ud IV .STK-MED ONE Lab/Rad Data: Laboratory Result Diagrams 08/10/22 08:34 08/10/22 08:34 Laboratory Results 08/10/22 08/10/22 08/10/22 Range/Units 08:34 08:34 08:34 WBC (4.0-10.5) x10^3/uL RBC (4.1-5.6) x10^6/uL Hgb (12.5-18.0) g/dL Hct (42-50) % MCV (78-100) fL MCH (26-32) pg MCHC (32-36) g/dL RDW (11.5-14.0) % Plt Count (150-450) x10^3/uL MPV (7.5-11.0) fL Gran % (36.0-66.0) % Immature Gran % (Auto) (0.00-0.4) % Nucleat RBC Rel Count (0.00-0.1) % Eos # (Auto) (0-0.5) x10^3/uL Immature Gran # (Auto) (0.00-0.03) x10^3u/L Absolute Lymphs (auto) (1.0-4.6) x10^3/uL Absolute Monos (auto) (0.0-1.3) x10^3/uL Absolute Nucleated RBC (0.00-0.01) x10^3u/L Lymphocytes % (24.0-44.0) % Monocytes % (0.0-12.0) % Eosinophils % (0.00-5.0) % Basophils % (0.0-0.4) % Absolute Granulocytes (1.4-6.9) x10^3/uL Basophils # (0-0.4) x10^3/uL D-Dimer 0.52 H (0.0-0.50) mg/L Sodium (137-145) mmol/L Potassium (3.5-5.1) mmol/L Chloride (98-107) mmol/L Carbon Dioxide (22-30) mmol/L Anion Gap (5-15) MEQ/L BUN (9-20) mg/dL Creatinine (0.66-1.25) mg/dL Estimated GFR ML/MIN Glucose (74-106) mg/dL Calcium (8.4-10.2) mg/dL Total Bilirubin (0.2-1.3) mg/dL AST (17-59) U/L ALT (0-50) U/L Alkaline Phosphatase (38-126) U/L Troponin I < 0.012 (0.000-0.034) ng/mL NT-Pro-B Natriuret Pep 84.1 (<300) pg/mL Serum Total Protein (6.3-8.2) g/dL Albumin (3.5-5.0) g/dL 08/10/22 08/10/22 Range/Units 08:34 08:34 WBC 5.1 (4.0-10.5) x10^3/uL RBC 4.17 (4.1-5.6) x10^6/uL Hgb 14.5 (12.5-18.0) g/dL Hct 42.6 (42-50) % MCV 102.2 H (78-100) fL MCH 34.8 H (26-32) pg MCHC 34.0 (32-36) g/dL RDW 14.6 H (11.5-14.0) % Plt Count 245 (150-450) x10^3/uL MPV 8.5 (7.5-11.0) fL Gran % 54.3 (36.0-66.0) % Immature Gran % (Auto) 0.0 (0.00-0.4) % Nucleat RBC Rel Count 0.0 (0.00-0.1) % Eos # (Auto) 0.05 (0-0.5) x10^3/uL Immature Gran # (Auto) 0.00 (0.00-0.03) x10^3u/L Absolute Lymphs (auto) 1.57 (1.0-4.6) x10^3/uL Absolute Monos (auto) 0.66 (0.0-1.3) x10^3/uL Absolute Nucleated RBC 0.00 (0.00-0.01) x10^3u/L Lymphocytes % 30.9 (24.0-44.0) % Monocytes % 13.0 H (0.0-12.0) % Eosinophils % 1.0 (0.00-5.0) % Basophils % 0.8 (0.0-0.4) % Absolute Granulocytes 2.76 (1.4-6.9) x10^3/uL Basophils # 0.04 (0-0.4) x10^3/uL D-Dimer (0.0-0.50) mg/L Sodium 138 (137-145) mmol/L Potassium 4.3 (3.5-5.1) mmol/L Chloride 100 (98-107) mmol/L Carbon Dioxide 32 H (22-30) mmol/L Anion Gap 10.2 (5-15) MEQ/L BUN 18 (9-20) mg/dL Creatinine 0.66 (0.66-1.25) mg/dL Estimated GFR > 60.0 ML/MIN Glucose 117 H (74-106) mg/dL Calcium 9.4 (8.4-10.2) mg/dL Total Bilirubin 1.30 (0.2-1.3) mg/dL AST 31 (17-59) U/L ALT 29 (0-50) U/L Alkaline Phosphatase 79 (38-126) U/L Troponin I (0.000-0.034) ng/mL NT-Pro-B Natriuret Pep (<300) pg/mL Serum Total Protein 7.0 (6.3-8.2) g/dL Albumin 4.1 (3.5-5.0) g/dL - Progress Progress: improved Air Movement: good Progress Note: 08/10/22 09:30 Chest x-ray was interpreted by the radiologist and I reviewed the impression. There are evidence is evidence of cardiomegaly without consolidation or evidence of pleural effusions. 08/10/22 10:09 This patient's medical issue is 1 of moderate complexity. The level complexity and the work-up performed is based on review of the patient's past medical history, review of the patient's medication list, review of the patient's drug allergy list, history present illness and findings on physical examination. The work-up includes a D-dimer, troponin level, twelve-lead EKG, CBC, CMP and chest x-ray. I reviewed the results of these studies. The patient does have a slightly elevated D-dimer. He is anticoagulated. However, he has chest pain and associated with worsening chest pain with deep inspiration and a history of pulmonary embolus. I ordered a CT of the chest with contrast and we are await ing the results of this study. If this CT chest with contrast is negative, patient will be discharged home with instruction to follow-up with his primary care provider and tenant selector for further evaluation and management. 08/10/22 11:00am The CT of the chest with contrast shows tiny nonoccluding pulmonary emboli in bilateral lower lobes. This patient is hemodynamically stable with no significant shortness of breath. He is stable from the cardiac standpoint as well as the pulmonary standpoint. He is on Eliquis 2.5 mg orally twice a day. It is unknown clear to me whether these tiny nonoccluding pulmonary emboli in both lower lobes are new or persistent from past. I will increase his Eliquis to 5 mg orally twice a day. He is to call his primary care provider today to make arrangements for a follow- up appointment in the next 3 days and for further instructions regarding his Eliquis medication. We will give him a dose of 5 mg Eliquis orally now in the emergency department. Blood Culture(s) Obtained: No Antibiotics given: No Counseled pt/family regarding: lab results, diagnosis, need for follow-up, zeeshan salgado Medical Desision Making - Diagnostic Testing Radiological Interpretation: Reviewed by me, Teleradiologist Report - Risk of complications Low Risk: Low risk of morbidity from additional dx testing or treatment - Departure Departure Disposition: Home Clinical Impression: Chest pain Condition: Stable Critical Care Time: No Referrals: Crescencio Bradshaw [Primary Care Provider] - Follow up/PCP as directed Additional Instructions: Increase your Eliquis to 5 mg orally twice a day until you contact your primary care provider for further instructions. Call your primary care provider for further evaluation and management including obtaining a follow-up appointment within the next 3 days.. Prescriptions: Apixaban [Eliquis] 5 mg PO BID #14 tablet
[2022-08-10 08:38] LABS: Absolute Neutrophil Ct (ANC) 2.76 x10^3/uL (1.4-6.9); BASOPHIL % 0.8 % (0.0-0.4); Basophil (Absolute #) 0.04 x10^3/uL (0-0.4); Eosinophil (Absolute #) 0.05 x10^3/uL (0-0.5); Hematocrit 42.6 % (42-50); Hemoglobin 14.5 g/dL (12.5-18.0); Lymphocyte (Absolute #) 1.57 x10^3/uL (1.0-4.6); Lymphocytes % 30.9 % (24.0-44.0); Mean Cell Volume 102.2 fL (78-100); Mean Corpuscular Hemoglobin 34.8 pg (26-32); Mean Platelet Volume 8.5 fL (7.5-11.0); Monocyte (Absolute #) 0.66 x10^3/uL (0.0-1.3); Neutrophil % 54.3 % (36.0-66.0); Platelet Count 245 x10^3/uL (150-450); Red Blood Count 4.17 x10^6/uL (4.1-5.6); Red Cell Distribution Width 14.6 % (11.5-14.0); White Blood Count 5.1 x10^3/uL (4.0-10.5)
[2022-08-10] MEDS ORDERED: BABY ASPIRIN 81 MG CHEW ONE (08:38)
--- NOTE | 2022-08-10 08:50 | XRAY ---
Indication: Chest pain. Comparison: December 13, 2021 Portable chest now demonstrates cardiomegaly without consolidation/large effusion. Rule out early or mild cardiac decompensation/CHF. Bony thorax intact again with osteopenia and mild degenerative changes.
[2022-08-10 08:54] LABS: ALBUMIN 4.1 g/dL (3.5-5.0); ALKALINE PHOSPHATASE 79 U/L (38-126); ANION GAP 10.2 MEQ/L (5-15); BLOOD UREA NITROGEN 18 mg/dL (9-20); CHLORIDE 100 mmol/L (98-107); Calcium 9.4 mg/dL (8.4-10.2); Carbon Dioxide 32 mmol/L (22-30); Creatinine 1 0.66 mg/dL (0.66-1.25); EST GLOMERULAR FILTRATION RATE > 60.0 ML/MIN; Glucose 117 mg/dL (74-106); Potassium 4.3 mmol/L (3.5-5.1); SGOT/AST 31 U/L (17-59); SGPT/ALT 29 U/L (0-50); SODIUM 138 mmol/L (137-145)
[2022-08-10] MEDS ORDERED: Sodium Chloride 0.9% 500 ML 500 ML IV ONE ×2 (09:30→09:36)
--- NOTE | 2022-08-10 10:33 | XRAY ---
Indication: Chest pain. History DVT and pulmonary embolus. Multiple contiguous axial images obtained through the chest using 100 cc Isovue 370 contrast and PE protocol. Comparison: None Good opacification of the pulmonary arteries to include the lobar and segmental branches. Tiny nonoccluding pulmonary emboli seen in the posterior medial segmental branches of both lower lobes. Heart borderline enlarged. Aorta is normal in course and caliber. Small mediastinal, bilateral hilar, and distal paraesophageal calcified nodes. No pathologic mediastinal/hilar lymphadenopathy. Lungs demonstrates a few tiny bilateral calcified granulomas. No suspicious pulmonary mass/nodule, infiltrate, or effusion. Bony thorax intact with mild degenerative changes throughout the spine. Limited upper abdomen demonstrates mild fatty liver and splenic calcified granulomas. Impression: 1. Tiny nonoccluding pulmonary emboli in both lower lobes. 2. Chronic findings including degenerative spondylosis, fatty liver, and old granulomatous disease.
[2022-08-10] MEDS ORDERED: ELIQUIS 2.5 MG TABLET PO ONE (11:07)
[2022-08-10 11:10] VITALS: BP 185/109; PULSE 70; O2SAT 94
== END 2022-08-10 11:18 | disposition home or self-care (01) ==
LOC: ED 08:11
DX: R07.9 Chest pain, unspecified (principal); J44.9 Chronic obstructive pulmonary disease, unspecified; Z86.711 Personal history of pulmonary embolism; Z86.718 Personal history of other venous thrombosis and embolism; Z79.01 Long term (current) use of anticoagulants; Z79.899 Other long term (current) drug therapy
CPT/HCPCS: 36000; 36415; 71045; 71260; 80053; 83880; 84484; 85025; 85379; 93005; 94760; 99284; A9270-GY

== ENCOUNTER 2023-03-08 10:35 | Day surgery (SDC) | payer MEDICARE ==
--- NOTE | 2022-12-26 11:30 | HP ---
DATE: 12/28/2022 HISTORY OF PRESENT ILLNESS: Patient is a 57 year-old man who presents with a history of colon polyps. The patient had colonoscopy some time ago. He has no complaints at this time. He has no family history of colon cancer. PAST MEDICAL HISTORY: Pulmonary embolism, benign prostatic hypertrophy, arthritis, chronic obstructive pulmonary disease, DDD, fibromyalgia. CURRENT MEDICATIONS: Albuterol, carbidopa, Ambien, meclizine, tamsulosin, Xarelto, hydrocodone, ibuprofen, omeprazole. ALLERGIES: NONE. PAST SURGERIES: Left knee replacement. SOCIAL HISTORY: Frequent alcohol. FAMILY HISTORY: Lung cancer, breast cancer. REVIEW OF SYSTEMS: CONSTITUTIONAL: Denies fever or chills. CHEST: Denies shortness of breath. CVS: Denies chest pain. ABDOMEN: Denies abdominal pain. PHYSICAL EXAMINATION: GENERAL: No acute distress. CHEST: Nonlabored. No shortness of breath. CVS: Regular rate and rhythm. ABDOMEN: Soft. IMPRESSION: 1. HISTORY OF POLYPS. PLAN: Colonoscopy with Dr. Mark. Cantu. This report was dictated for Dr. Cantu by Consuelo Dahl NP.
--- NOTE | 2023-03-07 09:23 | HP ---
DATE OF SURGERY: 03/08/2023 HISTORY OF PRESENT ILLNESS: The patient is a 57-year-old male who presents with a history of colon polyps. He has no family history of colon cancer. There are no complaints of the colon at this time. PAST MEDICAL HISTORY: Pulmonary embolism, arthritis, chronic obstructive pulmonary disease, peripheral vascular disease, fibromyalgia. PAST SURGICAL HISTORY: Knee replacement. ALLERGIES: NKDA. MEDICATIONS: Albuterol, carbidopa/levodopa, Ambien, meclizine, tamsulosin, Xarelto, omeprazole. FAMILY HISTORY: Lung cancer, breast cancer. SOCIAL HISTORY: Frequent alcohol. REVIEW OF SYSTEMS: CONSTITUTIONAL: Denies fever or chills. CHEST: Denies shortness of breath. CVS: Denies chest pain. ABDOMEN: Denies abdominal pain. PHYSICAL EXAMINATION: GENERAL: No acute distress. CHEST: Nonlabored. No shortness of breath. CVS: Regular rate and rhythm. ABDOMEN: Soft. IMPRESSION: History of polyps. PLAN: Colonoscopy with Dr. Minor Cantu. As dictated by Consuelo Dahl NP.
[~2023-03-08 10:35] MED LIST: Lactated Ringers 1,000 ML IV ONE; Lactated Ringers 1,000 ML IV SCH
[2023-03-08 11:00] VITALS: RESP 18
[2023-03-08] MEDS ORDERED: Lactated Ringers 1,000 ML IV SCH (11:00)
[2023-03-08] MEDS ORDERED: Xylocaine-Mpf 2% 5 Ml Vial ONE (11:38)
[2023-03-08] MEDS ORDERED: DIPRIVAN 200 MG/20 ML IV ONE ×2 (11:38→12:36)
[2023-03-08] MEDS ORDERED: Versed 2 MG/2 ML Injection ONE (12:24)
--- NOTE | 2023-03-08 13:13 | OP ---
SURGERY DATE/TIME: 03/08/2023 1230 PREOPERATIVE DIAGNOSIS: Follow up polyp. POSTOPERATIVE DIAGNOSES: 1) Moderate sigmoid diverticulosis. 2) Moderate internal hemorrhoids. 3) Complete exam to cecum with pictures of ileocecal valve and appendix. 4) Excellent prep. 5) No mucosal lesions. FOLLOW UP: Colonoscopy in five years. PROCEDURE: Colonoscopy. SURGEON: Minor Cantu M.D. ANESTHESIA: MAC. COMPLICATIONS: None. CONDITION: Stable. INDICATION: A patient presents for follow up of polyps. DESCRIPTION OF PROCEDURE: Taken to endoscopy. Scope advanced to the cecum. Base of the cecum, ileocecal valve, appendiceal orifice is normal. Ascending, hepatic, transverse, splenic, descending is normal. There is moderate sigmoid diverticulosis. There is moderate internal hemorrhoids. There were no mucosal lesions. Patient had mucosal lesions before however. Follow up in five years. Prep score excellent. Withdrawal time about six minutes.
[2023-03-08 13:29] VITALS: O2SAT 97
[2023-03-08 13:47] VITALS: BP 177/105; PULSE 69; TEMP 96.9
== END 2023-03-08 13:50 | disposition home or self-care (01) ==
LOC: SDC 10:35
PROVIDERS: ATTEND Surgery
DX: Z09 Encounter for follow-up examination after completed treatment for conditions other than malignant neoplasm (principal); Z86.010 Personal history of colon polyps; K57.30 Diverticulosis of large intestine without perforation or abscess without bleeding; K64.8 Other hemorrhoids
CPT/HCPCS: J2250; J2704